=== PATIENT | female | born 1980 | race Caucasian/White ===

== ENCOUNTER 2017-07-04 09:55 | Inpatient (IN) | payer BC, SELFPAY ==
[2017-07-04 10:23] LABS: Bilirubin Small (Negative); Blood, Urine Large (Negative); Glucose, Urine (Dipstick) Negative (Negative); Ketone, Urine 80 mg/dL (Negative); Nitrite Negative (Negative); Protein, Urine (Dipstick) Negative (Neg-Trace)
[2017-07-04 10:28] LABS: Hematocrit 16.7 % (36.0-47.0); Mean Platelet Volume 5.2 fL (7.4-10.4); Red Blood Cell (RBC) Count 1.46 mill/uL (4.20-5.40); White Blood Cell (WBC) Count 11.4 thou/uL (4.8-10.8)
[2017-07-04 10:39] LABS: Lactic Acid - Sepsis 2.3 mmol/L (0.5-2.2); Prothrombin Time 13.6 SEC (12.0-14.7)
[2017-07-04 10:43] LABS: PTT 22.4 SEC (22.9-36.1)
[2017-07-04 10:44] LABS: ALT (SGPT) 38 U/L (8-55); AST (SGOT) 62 U/L (5-34); Alkaline Phosphatase 94 U/L (40-150); Anion Gap 18 mmol/L (10-20); BUN (Urea Nitrogen) 13 mg/dL (7.0-18.7); Bilirubin, Total 7.7 mg/dL (0.2-1.2); CK (CPK) 30 U/L (29-168); Calc. Creatinine Clearance 0 mL/min (70-130); Calcium 8.6 mg/dL (7.8-10.44); Carbon Dioxide 18 mmol/L (22-29); Chloride 104 mmol/L (98-107); Estimated GFR-MDRD 87; Globulin 2.8 g/dL (2.4-3.5); Lipase 18 U/L (8-78); Protein, Total 7.2 g/dL (6.0-8.3); Troponin I Less than 0.010 ng/mL (< 0.028)
[2017-07-04 10:46] LABS: Bacteria/HPF 2+ HPF (None Seen); Hyaline Casts/LPF 0-3 HYALINE CAST LPF (0-3 Hyaline); RBC/HPF 0-3 HPF (0-3)
[2017-07-04 10:56] LABS: #Basophils 0.2 thou/uL (0.0-0.2); #Lymphocytes 1.1 thou/uL (1.20-3.40); #Monocytes 0.6 thou/uL (0.11-0.59); #Neutrophils 9.6 thou/uL (1.40-6.50); %Basophils 1.5 % (0.0-1.0); %Eosinophils 0.1 % (0.0-10.0); %Lymphocytes 9.3 % (21.0-51.0); %Monocytes 5.6 % (0.0-10.0); Anisocytosis MODERATE=16-30 cells (100X) (0-5/hpf); Hypochromia SLIGHT = 6-15 cells (100X) (0-5/hpf); Macrocytosis MODERATE=16-30 cells (100X) (0-5/hpf); Polychromasia MODERATE = 3-4 cells (100X) (0-2/hpf); Spherocytes SLIGHT = 1-5 cells (100X) (None Seen)
[2017-07-04 12:42] VITALS: BMI 31.7
[2017-07-04] MEDS ORDERED: Sodium Chloride 0.9% 1,000 ML IV SCH (13:15)
[2017-07-04] MEDS ORDERED: Mag-Al 1200 mg/1200 mg/30 ML UDCUP PO PRN (15:04)
[2017-07-04] MEDS ORDERED: hydrALAZINE 20 MG/ML VIAL SLOW IVP PRN (15:04)
[2017-07-04] MEDS: Sodium Chloride 0.9% 1,000 ML IV SCH (15:25)
[2017-07-04 16:14] LABS: Reticulocyte Count 24.6 % (0.5-1.5)
--- NOTE | 2017-07-04 17:32 | HP ---
PRIMARY CARE PHYSICIAN: Dr. Fowler. CHIEF COMPLAINT: \\\\"I'm having headaches and feeling generally weak and my color looks different.\\\\ " HISTORY OF PRESENT ILLNESS: Ms. Ruiz is a very pleasant 37-year-old female who has no signific ant past medical history. She says that about 2 weeks ago, she started having migraine type headach es and pain in the right ear. She says that it was coming and going and she felt like it was probab ly sinus related. She saw her primary care physician about it and he evaluated her and she continue d having the symptoms, so he placed her on some medication for migraines. He saw her a few days thao or to admission and she says she only took 2 doses of this medication. During this time, she was fe eling foggy headed and then she says that she had some vaginal bleeding that she thought felt was he r period, but then it went away. She has been feeling groggy and occasionally feels nauseated and h er body aching and for this reason she came back to see her primary care physician today. He notice d that her skin color appeared jaundiced and as a result he requested that she go to the emergency r oom for evaluation. In the ER, she was evaluated and found to have an elevated bilirubin of 7.7 and it was also noted that her hemoglobin was 5.4. She has a normal platelet count as well as normal l iver function tests, but she is being admitted for evaluation and treatment. The patient denies any new medications other than she has been on Contrave, which is a medication for weight loss for the past 4 months and she takes ibuprofen and Tylenol off and on for the recent body aches that she has been having and the medication for migraine. However, she says that the symptoms started prior to h er taking the medications for migraine. The patient otherwise does not notice any other particular symptoms. No sore throat, rhinorrhea, no abdominal pain, no change in bowels, etc. The patient has not had any recent foreign travel or any excessive outdoor exposure that she is aware of. No other dietary supplements, etc. REVIEW OF SYSTEMS: Constitutional: Again, she has had some subjective fever, but no chills, no nig ht sweats, no weight loss. HEENT: She has had the headache as previously mentioned as well as some blurred vision, no sore throat, no rhinorrhea, neck pain, no adenopathy. Pulmonary: No hemoptysis , no cough, no wheezing. Cardiovascular: She denies any chest pain, no shortness of breath, no PND , no orthopnea. Gastrointestinal: No abdominal pain. She has had some nausea, but no vomiting, no change in bowels. Genitourinary: No urinary frequency, hematuria, no hesitancy. Neurologic: No focal weakness, numbness, no seizures. Psychiatric: No symptoms of anxiety or depression. Skin/In tegument: No skin changes, no rash. PAST MEDICAL HISTORY: Negative. PAST SURGICAL HISTORY: She has had a as well as dental surgery and cholecystectomy. ALLERGIES: SULFA, which causes a rash all over her body. SOCIAL HISTORY: She is . She has 2 children, ages 16 and 21. She is a former smoker, she q uit a year ago. She rarely drinks. FAMILY HISTORY: No history of any inheritable diseases. CURRENT MEDICATIONS: Include Astelin nasal spray, Flonase and Contrave. PHYSICAL EXAMINATION: VITAL SIGNS: The blood pressure was 96/64, heart rate 85, respiratory rate of 16, and temperature i s 98.8. HEENT: Her pupils are equal, round, and reactive. Extraocular muscles are intact. Sclerae are mil dly jaundiced. Throat: There is no erythema, no exudates. NECK: No adenopathy, no bruits. LUNGS: Clear. There is no wheezing, no rales. CARDIOVASCULAR: She has a normal S1, S2. There is no S3 or S4. No murmurs, clicks or rubs. ABDOMEN: Soft, nontender, nondistended. Positive for bowel sounds. There is no rebound, no guardi ng. EXTREMITIES: She has got some mild nonpitting edema. NEUROLOGIC: The exam is grossly nonfocal. LABORATORY RESULTS: Sodium is 136, potassium is 3.8, chloride is 104, CO2 is 18, BUN of 13, creatin ine is 0.74, glucose is 165, and bilirubin is 7.7. White blood cell count 11.4, hemoglobin 5.4, hem atocrit is 16.7, platelet count is 401. INR is 1.0. Urinalysis shows large blood and 2+ bacteria, small leukocyte esterase. ASSESSMENT AND PLAN: This is a pleasant 37-year-old female who presents with generalized weakness, fatigue, headache and was found to have severe anemia with hemoglobin of 5.4. Her MCV was elevated at 114 and a normal platelet count. She also has an elevated bilirubin and this is likely as a resu lt of hemolysis. She will be admitted to the medical floor. Hematology has already been consulted. We will hold off on transfusing until she can be evaluated by Hematology. Hematology team has camilo boogie ordered some pulmonary lab work to identify the cause of the hemolysis. We will also need to c heck the medication Contrave to see if this is a potential culprit as well and would likely need to rule out infectious causes as well. We will hold off on any deep venous thrombosis prophylaxis othe r than mechanical prophylaxis until cleared by Hematology.
[2017-07-04] MEDS: methylPREDNISolone Sod Succ/PF 125 MG/2 ML VIAL IVP SCH (17:35)
[2017-07-04] MEDS: Acetaminophen 325 MG TAB PO PRN (19:01)
--- NOTE | 2017-07-04 19:03 | CON ---
DATE OF CONSULTATION: 07/04/2017 REASON FOR CONSULTATION: Severe anemia. HISTORY OF PRESENT ILLNESS: Ms. Ruiz is a pleasant 37-year-old female who presented to her primary care this morning with complaints of headaches, dizziness and fatigue. She was noted to be extremely jaundiced and referred to the emergency room. CBC showed a hemoglobin of 5.4. Her total bilirubin was 7.7. She had a positive stool guaiac. The patient was admitted for further evaluation. The patient states she has been in her usual state of health until approximately 2 weeks ago when she began to have headaches. Over the weekend, she had dizziness especially when standing from a sitting position. She was having difficulty thinking. She denies any shortness of breath or chest pain. She was due to start her menses on Sunday and had a very brief episode of clotting, but no bleeding since. She denies any history of anemia. She is allergic to SULFA and has not taken any recently. No recent illness. She started a medication called Contrave approximately 4 months ago and this is the only medication that she takes. She does admit to taking Motrin and Tylenol every 6 hours over the last few days for her headache. We were contacted when the patient was in the emergency room as was concerns for hemolysis given her elevated bilirubin. She was typed and crossed but we requested that she not be transfused. PAST MEDICAL HISTORY: Anxiety and depression. PAST SURGICAL HISTORY: 1. Cholecystectomy. 2. x2. ALLERGIES: SULFA. HOME MEDICATIONS: 1. Contrave 2 tablets p.o. b.i.d. 2. Flonase p.r.n. FAMILY HISTORY: No history of hemolytic anemia or blood disorder. SOCIAL HISTORY: , has 2 children, lives with her spouse. No alcohol, tobacco or illicit drug use. REVIEW OF SYSTEMS: Constitutional: No fever, chills, night sweats, recent weight loss or gain. Eyes: No blurred or double vision. ENT: No pain, hoarseness, sore throat, or dysphagia. Cardiovascular: No chest pain, palpitations or syncope. Respiratory: No shortness of breath, dyspnea on exertion or orthopnea. Gastrointestinal: No nausea, vomiting, diarrhea, constipation or abdominal pain. Genitourinary: No dysuria or hematuria. Musculoskeletal: No joint or back pain. Skin: No rash or pruritus. Hematologic: No bleeding, bruising or clotting. Neurologic: Positive for weakness and headache. No numbness, tingling or seizure activity. Psychiatric : No anxiety or depression. PHYSICAL EXAMINATION: VITAL SIGNS: Temperature is 98.8, pulse is 85, respiratory rate is 16, blood pressure is 96/62. She is 100% on room air. GENERAL: Well-developed, well-nourished female, in no acute distress. HEENT: Normocephalic, atraumatic. Pupils are equal and reactive to light. Sclerae are icteric. NECK: Supple. CARDIOVASCULAR: Regular rate and rhythm. LUNGS: Clear to auscultation. ABDOMEN: Soft, nontender, bowel sounds are positive. EXTREMITIES: No clubbing, cyanosis or edema. SKIN: She is jaundiced. NEUROLOGICAL: Nonfocal. PSYCHIATRIC: The patient is alert and oriented and appropriate. PERTINENT LABORATORY AND X-RAYS: Current WBCs are 11.4, hemoglobin 5.4, hematocrit 16.7, MCV is 114, platelet count is 401. She got 84% neutrophils, 10 % lymphocytes. Sed rate is 101. Retic count is 24.6. PT is 13.6, INR is 1.0, PTT is 22.4. Sodium is 136, potassium 3.8, chloride 104, CO2 is 18, BUN is 13, creatinine 0.674. Lactic acid is 1.1, calcium 8.6, total bilirubin is 7.7, AST is 62, ALT is 38, alkaline phosphatase is 94. Troponin is negative. C- reactive protein is 1.34. Serum total protein 7.2, albumin 4.2, globulin 2.8. Ester test is positive. ASSESSMENT AND PLAN: Hemolytic anemia, autoimmune versus possible drug induced secondary to Contrave. I recommend that she stop this medication. We will begin high dose steroids, Solu-Medrol twice daily and hold transfusion at this time that she is essentially asymptomatic other than jaundice. We will recheck her CBC in the morning and follow her hospital course closely. Thank you for the consult. The case was discussed with Dr. Edward Lilly. ALLA
[2017-07-05] MEDS: traMADol HCl 50 MG TAB PO PRN (00:32)
[2017-07-05] MEDS: Sodium Chloride 0.9% 1,000 ML IV SCH ×2 (01:55→17:34)
[2017-07-05] MEDS: Acetaminophen 325 MG TAB PO PRN ×2 (02:57→14:46)
[2017-07-05] MEDS: methylPREDNISolone Sod Succ/PF 125 MG/2 ML VIAL IVP SCH ×2 (06:24→17:34)
[2017-07-05 06:39] LABS: Hematocrit 12.4 % (36.0-47.0); Mean Platelet Volume 6.5 fL (7.4-10.4); Red Blood Cell (RBC) Count 1.11 mill/uL (4.20-5.40); White Blood Cell (WBC) Count 9.8 thou/uL (4.8-10.8)
[2017-07-05 06:40] LABS: #Eosinphils 0.1 thou/uL (0.0-0.7); #Lymphocytes 1.1 thou/uL (1.20-3.40); #Monocytes 0.5 thou/uL (0.11-0.59); #Neutrophils 8.2 thou/uL (1.40-6.50); %Eosinophils 0.9 % (0.0-10.0); %Monocytes 4.7 % (0.0-10.0)
[2017-07-05 06:41] LABS: Anion Gap 11 mmol/L (10-20); BUN (Urea Nitrogen) 9 mg/dL (7.0-18.7); Calc. Creatinine Clearance 159 mL/min (70-130); Carbon Dioxide 22 mmol/L (22-29); Chloride 107 mmol/L (98-107); Estimated GFR-MDRD Greater than 90
--- NOTE | 2017-07-05 07:06 | PDOC.PN ---
- Subjective Encounter Start Date: 07/05/17 Encounter Start Time: 07:03 Ms. Ruiz says she continues to have a headache, but actually feels a little better today. She denies chest pain or shortness of breath. - Objective Resuscitation Status: Resuscitation Status FULL:Full Resuscitation MAR Reviewed: Yes Vital Signs & Weight: Vital Signs (12 hours) Temp Pulse Resp BP Pulse Ox 07/05/17 04:00 98.6 F 92 16 97/62 100 07/05/17 00:00 98.8 F 91 16 98/60 100 07/04/17 20:00 100.6 F H 99 16 115/73 98 I&O: 07/04/17 07/05/17 07/06/17 06:59 06:59 06:59 Intake Total 1100 Output Total 300 Balance 800 Result Diagrams: 07/05/17 04:18 07/05/17 04:18 Phys Exam - Physical Examination HEENT: PERRLA Respiratory: no wheezing, no rales, no rhonchi, clear to auscultation bilateral Cardiovascular: RRR + 2/6 systolic murmur Gastrointestinal: soft, non-tender, positive bowel sounds Musculoskeletal: no edema Dx/Plan (1) Acute hemolytic anemia Code(s): D59.9 - ACQUIRED HEMOLYTIC ANEMIA, UNSPECIFIED Status: Acute (2) Obesity (BMI 30.0-34.9) Code(s): E66.9 - OBESITY, UNSPECIFIED Status: Acute - Plan * Acute Hemolytic Anemia- patient H&H has dropped * Besides headache she is relatively asymptomatic- however will transfer to IMCU for closer monitoring until her hemoglobin begins to trend up * Await further recommendations from Hematology.
[2017-07-05 07:31] LABS: Anisocytosis MODERATE=16-30 cells (100X) (0-5/hpf); Hypochromia SLIGHT = 6-15 cells (100X) (0-5/hpf); Polychromasia MARKED = >4 cells (100X) (0-2/hpf)
[2017-07-05 18:17] LABS: Hematocrit 15.2 % (36.0-47.0); Mean Platelet Volume 6.4 fL (7.4-10.4); Red Blood Cell (RBC) Count 1.38 mill/uL (4.20-5.40)
[2017-07-05 18:51] LABS: Anisocytosis SLIGHT = 6-15 cells (100X) (0-5/hpf); Band 2 % (5-11); Metamyelocyte 2 % (0-0); Neutrophil 79 % (42-75); Polychromasia MODERATE = 3-4 cells (100X) (0-2/hpf)
[2017-07-06] MEDS: Sodium Chloride 0.9% 1,000 ML IV SCH ×2 (01:07→15:00)
[2017-07-06] MEDS: traMADol HCl 50 MG TAB PO PRN ×3 (01:07→19:42)
[2017-07-06] MEDS: Acetaminophen 325 MG TAB PO PRN ×3 (01:07→19:42)
[2017-07-06 04:40] LABS: ALT (SGPT) 25 U/L (8-55); AST (SGOT) 20 U/L (5-34); Alkaline Phosphatase 70 U/L (40-150); Anion Gap 13 mmol/L (10-20); BUN (Urea Nitrogen) 10 mg/dL (7.0-18.7); Bilirubin, Total 5.3 mg/dL (0.2-1.2); Calc. Creatinine Clearance 154 mL/min (70-130); Carbon Dioxide 23 mmol/L (22-29); Chloride 109 mmol/L (98-107); Estimated GFR-MDRD Greater than 90; Globulin 2.2 g/dL (2.4-3.5); Protein, Total 5.9 g/dL (6.0-8.3)
[2017-07-06 04:48] LABS: Hematocrit 14.1 % (36.0-47.0)
[2017-07-06 05:30] LABS: Anisocytosis SLIGHT = 6-15 cells (100X) (0-5/hpf); Band 3 % (5-11); Macrocytosis SLIGHT = 6-15 cells (100X) (0-5/hpf); Mean Platelet Volume 6.5 fL (7.4-10.4); Metamyelocyte 1 % (0-0); Neutrophil 86 % (42-75); Nucleated RBC 2 % (0); Polychromasia MARKED = >4 cells (100X) (0-2/hpf); Red Blood Cell (RBC) Count 1.23 mill/uL (4.20-5.40); Spherocytes SLIGHT = 1-5 cells (100X) (None Seen); White Blood Cell (WBC) Count 17.9 thou/uL (4.8-10.8)
[2017-07-06] MEDS: methylPREDNISolone Sod Succ/PF 125 MG/2 ML VIAL IVP SCH ×2 (05:31→18:21)
--- NOTE | 2017-07-06 08:06 | PDOC.PN ---
- Subjective Encounter Start Date: 07/06/17 Encounter Start Time: 08:04 Ms. Ruiz says she feels about the same. She continues to have the headache , but no other complaints. - Objective Resuscitation Status: Resuscitation Status FULL:Full Resuscitation MAR Reviewed: Yes Vital Signs & Weight: Vital Signs (12 hours) Temp Pulse Resp BP Pulse Ox 07/06/17 04:00 98.7 F 70 16 93/62 100 07/06/17 00:00 98.7 F 91 16 105/58 L 98 07/05/17 22:00 80 16 92/56 L 98 Weight Admit Weight 185 lb Weight 203 lb I&O: 07/05/17 07/06/17 07/07/17 06:59 06:59 06:59 Intake Total 1100 4250 Output Total 300 Balance 800 4250 Result Diagrams: 07/06/17 04:09 07/06/17 04:09 Phys Exam - Physical Examination HEENT: PERRLA Respiratory: no wheezing, no rales, no rhonchi, clear to auscultation bilateral Cardiovascular: RRR, no significant murmur Gastrointestinal: soft, non-tender, positive bowel sounds Musculoskeletal: no edema Dx/Plan (1) Acute hemolytic anemia Code(s): D59.9 - ACQUIRED HEMOLYTIC ANEMIA, UNSPECIFIED Status: Acute (2) Obesity (BMI 30.0-34.9) Code(s): E66.9 - OBESITY, UNSPECIFIED Status: Acute - Plan * Hemolytic Anemia- suspect Auto-immune, vs. Drug induced * Continue IV steroids * Continue to monitor H&H * Despite her low H&H she appears stable, and her H&H has not dropped below 4. She may be able to move to Oncology of Medical floor.
[2017-07-07] MEDS: Sodium Chloride 0.9% 1,000 ML IV SCH (01:03)
[2017-07-07 05:40] LABS: Anisocytosis MODERATE=16-30 cells (100X) (0-5/hpf); Band 5 % (5-11); Hematocrit 19.1 % (36.0-47.0); Macrocytosis SLIGHT = 6-15 cells (100X) (0-5/hpf); Mean Platelet Volume 6.5 fL (7.4-10.4); Metamyelocyte 2 % (0-0); Neutrophil 84 % (42-75); Polychromasia MODERATE = 3-4 cells (100X) (0-2/hpf); Red Blood Cell (RBC) Count 1.69 mill/uL (4.20-5.40); White Blood Cell (WBC) Count 21.8 thou/uL (4.8-10.8)
[2017-07-07] MEDS: Acetaminophen 325 MG TAB PO PRN ×2 (06:26→18:35)
[2017-07-07] MEDS: traMADol HCl 50 MG TAB PO PRN ×2 (06:27→18:36)
[2017-07-07] MEDS: methylPREDNISolone Sod Succ/PF 125 MG/2 ML VIAL IVP SCH ×2 (06:28→18:26)
--- NOTE | 2017-07-07 07:32 | PDOC.PN ---
- Subjective Encounter Start Date: 07/07/17 Encounter Start Time: 07:30 Ms. Ruiz is feeling a little better this morning. - Objective Resuscitation Status: Resuscitation Status FULL:Full Resuscitation MAR Reviewed: Yes Vital Signs & Weight: Vital Signs (12 hours) Temp Pulse Resp BP Pulse Ox 07/07/17 04:00 98.4 F 72 16 100/64 96 07/06/17 19:35 98.9 F 88 16 93/56 L 100 Weight Admit Weight 185 lb Weight 204 lb 8 oz I&O: 07/06/17 07/07/17 07/08/17 06:59 06:59 06:59 Intake Total 4250 4990 Output Total 1275 Balance 4250 3715 Result Diagrams: 07/07/17 04:42 07/06/17 04:09 Phys Exam - Physical Examination HEENT: PERRLA Respiratory: no wheezing, no rales, no rhonchi, clear to auscultation bilateral Cardiovascular: RRR, no significant murmur Gastrointestinal: soft, non-tender, positive bowel sounds Musculoskeletal: no edema Dx/Plan (1) Acute hemolytic anemia Code(s): D59.9 - ACQUIRED HEMOLYTIC ANEMIA, UNSPECIFIED Status: Acute (2) Obesity (BMI 30.0-34.9) Code(s): E66.9 - OBESITY, UNSPECIFIED Status: Acute - Plan * Acute anemia- due to hemolysis- she received another unit of blood yesterday * Her H&H is holding at 6.2 * She is afebrile today * Stable for move out the [facility].
[2017-07-07] MEDS ORDERED: Sterile Water 10 ML ONE (18:24)
[2017-07-07] MEDS ORDERED: Sodium Chloride 0.9% 10 ML ONE (18:34)
[2017-07-08 04:09] LABS: #Eosinphils 0.1 thou/uL (0.0-0.7); #Lymphocytes 1.2 thou/uL (1.20-3.40); #Monocytes 0.8 thou/uL (0.11-0.59); %Eosinophils 0.3 % (0.0-10.0); %Lymphocytes 7.1 % (21.0-51.0); %Monocytes 4.9 % (0.0-10.0); Anisocytosis MODERATE=16-30 cells (100X) (0-5/hpf); Hematocrit 19.5 % (36.0-47.0); Macrocytosis SLIGHT = 6-15 cells (100X) (0-5/hpf); Mean Platelet Volume 6.8 fL (7.4-10.4); Polychromasia MARKED = >4 cells (100X) (0-2/hpf); Spherocytes SLIGHT = 1-5 cells (100X) (None Seen); White Blood Cell (WBC) Count 17.1 thou/uL (4.8-10.8)
[2017-07-08] MEDS: methylPREDNISolone Sod Succ/PF 125 MG/2 ML VIAL IVP SCH ×2 (07:18→18:08)
--- NOTE | 2017-07-08 14:19 | PDOC.PN ---
- Subjective Encounter Start Date: 07/08/17 Encounter Start Time: 14:13 Ms. Ruiz is feeling better. She has not had a headache in over 24 hours now. - Objective Resuscitation Status: Resuscitation Status FULL:Full Resuscitation MAR Reviewed: Yes Vital Signs & Weight: Vital Signs (12 hours) Temp Pulse Resp BP Pulse Ox 07/08/17 08:00 98.5 F 75 16 07/08/17 07:25 98.5 F 75 16 101/65 100 Weight Admit Weight 185 lb Weight 204 lb 8 oz I&O: 07/07/17 07/08/17 07/09/17 06:59 06:59 06:59 Intake Total 4990 240 Output Total 1275 Balance 3715 240 Result Diagrams: 07/08/17 03:33 07/06/17 04:09 Phys Exam - Physical Examination HEENT: PERRLA Respiratory: no wheezing, no rales, no rhonchi, clear to auscultation bilateral Cardiovascular: RRR, no significant murmur, no rub Gastrointestinal: soft, non-tender, positive bowel sounds Musculoskeletal: no edema Dx/Plan (1) Acute hemolytic anemia Code(s): D59.9 - ACQUIRED HEMOLYTIC ANEMIA, UNSPECIFIED Status: Acute (2) Obesity (BMI 30.0-34.9) Code(s): E66.9 - OBESITY, UNSPECIFIED Status: Acute - Plan * Acute hemolytic anemia- her hemoglobin has been holding in the mid 6's * Symptomatically she is improved, with headache resolved, and she was up to ambulate today. * Hopefully home tomorrow
[2017-07-09 05:55] LABS: Mean Platelet Volume 6.9 fL (7.4-10.4); Metamyelocyte 1 % (0-0); Microcytosis SLIGHT = 6-15 cells (100X) (0-5/hpf); Neutrophil 88 % (42-75); Nucleated RBC 1 % (0); Ovalocytes SLIGHT = 2-5 cells (100X) (0-1/hpf); Polychromasia MODERATE = 3-4 cells (100X) (0-2/hpf); Red Blood Cell (RBC) Count 1.82 mill/uL (4.20-5.40); White Blood Cell (WBC) Count 14.1 thou/uL (4.8-10.8)
[2017-07-09] MEDS: methylPREDNISolone Sod Succ/PF 125 MG/2 ML VIAL IVP SCH (06:43)
--- NOTE | 2017-07-09 07:19 | PDOC.PN ---
- Subjective Encounter Start Date: 07/09/17 Encounter Start Time: 07:17 - Objective Resuscitation Status: Resuscitation Status FULL:Full Resuscitation MAR Reviewed: Yes Vital Signs & Weight: Vital Signs (12 hours) Temp Pulse Resp Pulse Ox 07/08/17 19:53 98.9 F 76 16 98 Weight Admit Weight 185 lb Weight 204 lb 8 oz I&O: 07/08/17 07/09/17 07/10/17 06:59 06:59 06:59 Intake Total 240 960 Balance 240 960 Result Diagrams: 07/09/17 05:23 07/06/17 04:09 Phys Exam - Physical Examination HEENT: PERRLA Respiratory: no wheezing, no rales, no rhonchi, clear to auscultation bilateral Cardiovascular: RRR, no significant murmur Gastrointestinal: soft, positive bowel sounds Musculoskeletal: no edema Dx/Plan (1) Acute hemolytic anemia Code(s): D59.9 - ACQUIRED HEMOLYTIC ANEMIA, UNSPECIFIED Status: Acute (2) Obesity (BMI 30.0-34.9) Code(s): E66.9 - OBESITY, UNSPECIFIED Status: Acute - Plan * Hemolytic Anemia- likely from medication ( drug related) * Her H&H is stable, slightly higher * Discharge home if OK with Hematology.
[2017-07-09 12:07] VITALS: BP 115/62; TEMP 99.6
--- NOTE | 2017-07-09 12:49 | DIS ---
DATE OF ADMISSION: 07/04/2017 DATE OF DISCHARGE: 07/09/2017 PRIMARY CARE PHYSICIAN: Dr. Fowler. DISCHARGE DISPOSITION: Home. PRIMARY DISCHARGE DIAGNOSES: 1. Acute hemolytic anemia, likely secondary to medication. 2. Obesity. 3. Allergic rhinitis. DISCHARGE MEDICATIONS: Include prednisone taper, Flonase nasal spray as well as Astelin nasal spray . CODE STATUS: FULL CODE. ALLERGIES: SULFA as well as CONTRAVE. HOSPITAL COURSE: Ms. Ruiz is a pleasant 37-year-old female that presented to her primary care physician due to feeling tired and weak and having a headache. She appeared jaundiced and he recomm ended that she go to the [facility]gent [facility] for evaluation. There, it was found that her bilirubin was 7.7 and her hemoglobin was 4.2. For this reason, she was transferred to our facility and found to have an acute hemolytic anemia thought to be secondary to a new medication that she had been star frank on in the past few months, it is a medication to help with weight loss called Contrave and she w as taken off of this medication and placed on high dose steroids. Her hemoglobin got as low as 4.2, but began to recover after transfusion as well as IV steroids and stabilized at about 6.5. She was symptomatically much improved at the time of discharge, headache had resolved as well as some of generalized weakness and she is being discharged home on a steroid taper. She is to follow up [facility] in approximately 3 days on and also with her primary care physician in [address] [place] [address] and as such, she is also being taken off of the medication Contrave and she has been instructed t o do so.
--- NOTE | 2017-07-21 16:29 | EKG ---
Test Reason : Blood Pressure : / mmHG Vent. Rate : 082 BPM Atrial Rate : 082 BPM P-R Int : 144 ms QRS Dur : 086 ms QT Int : 392 ms P-R-T Axes : 049 051 049 degrees QTc Int : 457 ms Poor data quality, interpretation may be adversely affected Normal sinus rhythm Normal ECG Confirmed by JOSE ZAZUETA, CELIA ([id number]), news video editor FARRAH HADLEY ([id number]) on 07/21/2017 4:28:48 PM Referred By: Confirmed By:CELIA GARCIA MD
== END 2017-07-09 12:17 | disposition home or self-care (01) | DRG 810 ==
LOC: SCSER 09:55 → T4-A 11:11 → IMCU/EMU 07-05 08:09 → ONC 07-07 11:12
PROVIDERS: ADMIT Internal Medicine; ATTEND Internal Medicine
PROC: 30233N1 Transfusion of Nonautologous Red Blood Cells into Peripheral Vein, Percutaneous Approach (ICD-10-PCS; principal; 2017-07-05)
PROC: 30233N1 Transfusion of Nonautologous Red Blood Cells into Peripheral Vein, Percutaneous Approach (ICD-10-PCS; 2017-07-06)
DX: D59.2 Drug-induced nonautoimmune hemolytic anemia (principal); E66.9 Obesity, unspecified; T50.995A Adverse effect of other drugs, medicaments and biological substances, initial encounter; Z68.30 Body mass index [BMI] 30.0-30.9, adult; R51 Headache; J30.9 Allergic rhinitis, unspecified; F41.9 Anxiety disorder, unspecified; Z87.891 Personal history of nicotine dependence
CPT/HCPCS: 36415; 36416; 36430; 80048; 80053; 81003; 81015; 82150; 82248; 82274; 82553; 83010; 83605; 83615; 83690; 84484; 85025; 85046; 85610; 85652; 85730; 86038; 86140; 86850; 86880; 86900; 86901; 86922; 87040; 87086; 93005; 94760; 96360; A4216; J2930; J7050; P9016

== ENCOUNTER 2017-09-18 10:44 | Inpatient (IN) | payer BC ==
[2017-09-18 11:16] VITALS: BMI 33.5
[2017-09-18] MEDS ORDERED: Sodium Chloride 0.9% 10 ML ONE (11:41)
[2017-09-18] MEDS ORDERED: OCTAGAM IVPB SCH (12:30)
[2017-09-18] MEDS ORDERED: methylPREDNISolone Sod Succ/PF 125 MG/2 ML VIAL IVP SCH (12:30)
[2017-09-18] MEDS ORDERED: Acetaminophen 500 MG TAB PO PRN (13:32)
[2017-09-18] MEDS ORDERED: diphenhydrAMINE 25 MG CAP PO SCH (13:45)
[2017-09-18] MEDS ORDERED: Ondansetron HCl/PF 4 MG/2 ML Vial IVP PRN (14:58)
[2017-09-18] MEDS ORDERED: Zolpidem Tartrate 5 MG TAB PO PRN (14:58)
--- NOTE | 2017-09-18 15:37 | HP ---
PRIMARY CARE PROVIDER: Dr. Lilly and Dr. Christen Fowler. Direct admit from Dr. Lilly' office CHIEF COMPLAINT: Symptomatic anemia. HISTORY OF PRESENT ILLNESS: Patient with a history of hemolytic anemia diagnosed 06/26/2017, present s weak, short of breath, dyspnea on exertion, dizziness arising, some elevated temperature to 100 wit h chills and sweats. She was seen 5 days ago and started on oral prednisone 40 mg a day. She was se en yesterday, found to have a hemoglobin less than 6. She was called a direct admit to the hospital today for transfusion, IV steroids, etc. PAST SURGICAL HISTORY: and cholecystectomy. ALLERGIES: SULFA. MEDICATIONS: Prednisone 20 mg twice a day for the last 5 days. She takes Afrin and a Flonase nasal spray. SOCIAL HISTORY: . FULL CODE status. Two children. Quit smoking greater than a year ago. R anahi drinks alcohol. FAMILY HISTORY: Negative for inherited diseases. REVIEW OF SYSTEMS: Constitutional: Fever to 100, chills, sweats, dizziness. Eyes: No double visio n, blurred vision, flashing lights. Ears, Nose, and Throat: No ear pain or drainage. No nasal blee ding. No trouble swallowing. Cardiac: No chest pain, orthopnea, or paroxysmal nocturnal dyspnea. Respirations: No cough, wheezing, or asthma. Gastrointestinal: Mild nausea, no emesis, no abdomina l pain or diarrhea. Genitourinary: No hematuria, dysuria. Musculoskeletal: No pain or swelling in arms or legs. Neurologic: No strokes, seizures, or focal weakness. Psychiatric: No anxiety or de pression. Skin: No bruises, bleeding, or rash. Heme/Lymph: No tender or swollen lymph nodes in ax illa, inguinal, or cervical area. PHYSICAL EXAMINATION: GENERAL: She is an alert, pleasant, cooperative lady. VITAL SIGNS: Blood pressure 116/56, temperature 98.9, pulse 97, respirations 20, O2 sat 100 on room air. HEENT: Examination of her head, eyes, ears, nose, and throat reveal pupils equal, round, and reactiv e to light. Extraocular movements are intact. Mucous membranes are pale. Sclerae white. Tympanic membranes clear. Nose is clear. Oral mucous membranes are wet. NECK: No jugular venous distention, adenopathy, or thyromegaly. CHEST: Clear to auscultation and percussion. HEART: Regular rate and rhythm. First and second heart sounds are clear. There are no appreciated murmurs or gallops. ABDOMEN: Soft, bowel sounds are normal. No hepatosplenomegaly, masses, rebound, or bruits. EXTREMITIES: No cyanosis, clubbing, or edema. SKIN: Warm and dry without bruises or rash. LYMPHATIC: No tender or swollen lymph nodes in axilla, inguinal, or cervical area. No petechial hem orrhages or ecchymoses. PULSES: Carotid, radial, femoral, and dorsalis pedis pulses intact, brisk, and symmetric. NEUROLOGICAL: Cranial nerves II-XII are intact. Moves all extremities. Deep tendon reflexes symmet mack. Sensation is intact. LABORATORY DATA: Labs, none available. EKGs, none available. Chest x-ray, none available. The patient is currently on methylprednisolone 60 mg IV b.i.d., Octagam 10% 80 grams in 1 bag IV now. Antibody panel has been ordered. Type and cross matched for 2 units to be transfused when available. A comprehensive metabolic profile and a CBC will be obtained tomorrow morning. DIAGNOSES: Symptomatic anemia, hemolytic anemia, dizziness, and fever.
[2017-09-18] MEDS: methylPREDNISolone Sod Succ/PF 125 MG/2 ML VIAL IVP SCH (21:02)
[2017-09-18] MEDS: Acetaminophen 325 MG TAB PO PRN (21:02)
--- NOTE | 2017-09-18 23:09 | CON ---
DATE OF CONSULTATION: 09/18/2017 REASON FOR ADMISSION: Relapsed autoimmune hemolytic anemia. HISTORY OF PRESENT ILLNESS: The patient is a 37-year-old woman originally diagnosed with autoimmune hemolytic anemia in 06/2017. She presented with a hemoglobin of 4 with typical findings consistent w ith autoimmune hemolysis. She was placed on high dose steroids and transition to outpatient status. She responded nicely to steroids with a peak hemoglobin of 13.6 in early August. Steroids were ta pered and discontinued in late August. She presented to the office on 09/14 with fatigue and jaund ice and the hemoglobin had decreased to 8.8, again with evidence of autoimmune hemolysis. Steroids w ere resumed and she returned to the office on the day of admission with marked fatigue and was margin ally ambulatory. CBC showed a white blood cell count of 17.7, hemoglobin 5.6, hematocrit 15.8, MCV 1 00.1, and platelet count 442,000. Physical examination was consistent with a marked anemia and decre ase functional status associated with scleral icterus. She is admitted at this time for relapsed aut oimmune hemolysis and for further therapy. ALLERGIES: She describes sensitivity to SULFA. MEDICATION: Flonase and Zyrtec as needed. MEDICAL ILLNESS: The patient has history of anxiety and depression. There is no history of hyperten emilia, diabetes mellitus, or coronary artery disease. PAST SURGICAL HISTORY: She has undergone section twice in the past and a cholecystectomy in 2003. FAMILY HISTORY: There is no history of blood disorder in the family. PERSONAL HISTORY: The patient is and has 2 children. She lives with her spouse. She is a f ormer smoker. She does not drink alcohol excessively. She is an corporate staff accountant and works locally. She has had no occupational exposure. PHYSICAL EXAMINATION: VITAL SIGNS: Temperature 99.6, pulse 114 and regular, blood pressure 132/74 and she is afebrile. GENERAL: The patient is a well-developed, well-nourished woman in mild distress, complaining of ofelia ed fatigue. She is clearly jaundiced. HEENT: The extraocular movements are intact and the pupils are equal, round, and reactive to light. NECK: Supple. LUNGS: Clear. CARDIOVASCULAR: Regular rate and rhythm without murmur, rub, gallop, or click. There is a resting s inus tachycardia. ABDOMEN: No tenderness, organomegaly, masses, bruits, or ascites. EXTREMITIES: No clubbing, cyanosis, or edema. SKIN: Normal. LYMPH: No adenopathy. MUSCULOSKELETAL: No active arthritis. NEUROLOGIC: No focal findings. Cranial nerves II-XII are grossly intact. LABORATORY DATA: See history of present illness. IMPRESSION: Relapsed autoimmune hemolytic anemia. RECOMMENDATIONS: The patient will be admitted for resumption of high dose steroids. Intravenous imm unoglobulin will be administered. She will be typed and crossed 4 units of packed red blood cells an d transfusion. We will proceed cautiously. When stable, we planned to begin Rituxan and will likely give the first dose of 4 consecutive weekly doses in the hospital. Thanks very much for allowing me to provide my recommendations.
[2017-09-19 06:50] LABS: ALT (SGPT) 10 U/L (8-55); AST (SGOT) 11 U/L (5-34); Albumin 3.8 g/dL (3.5-5.0); Alkaline Phosphatase 74 U/L (40-150); Anion Gap 14 mmol/L (10-20); BUN (Urea Nitrogen) 11 mg/dL (7.0-18.7); Bilirubin, Total 4.8 mg/dL (0.2-1.2); Calc. Creatinine Clearance 146 mL/min (70-130); Calcium 9.1 mg/dL (7.8-10.44); Carbon Dioxide 23 mmol/L (22-29); Chloride 105 mmol/L (98-107); Estimated GFR-MDRD 90; Globulin 4.2 g/dL (2.4-3.5); Glucose 129 mg/dL (70-105); Potassium 3.5 mmol/L (3.5-5.1); Sodium 138 mmol/L (136-145)
[2017-09-19 06:55] LABS: #Eosinphils 0.2 thou/uL (0.0-0.7); #Monocytes 1.3 thou/uL (0.11-0.59); #Neutrophils 16.2 thou/uL (1.40-6.50); %Basophils 0.1 % (0.0-1.0); %Eosinophils 0.9 % (0.0-10.0); %Lymphocytes 10.3 % (21.0-51.0); %Monocytes 6.6 % (0.0-10.0); %Neutrophils 82.1 % (42.0-75.0); Anisocytosis MODERATE=16-30 cells (100X) (0-5/hpf); Band 8 % (5-11); Hemoglobin 7.1 g/dL (12.0-16.0); Lymphocytes 7 % (21-51); MDiff Complete? YES; Mean Corpuscular HGB CONC 33.7 g/dL (32.0-36.0); Mean Corpuscular Hemoglobin 33.9 pg (27.0-31.0); Mean Platelet Volume 6.6 fL (7.4-10.4); Metamyelocyte 1 % (0-0); Monocytes 2 % (0-10); Neutrophil 82 % (42-75); Nucleated RBC 1 % (0); Platelet Count 350 thou/uL (130-400); Polychromasia MODERATE = 3-4 cells (100X) (0-2/hpf); RBC Distribution Width 21.9 % (11.5-14.5); Spherocytes SLIGHT = 1-5 cells (100X) (None Seen); White Blood Cell (WBC) Count 19.7 thou/uL (4.8-10.8)
[2017-09-19] MEDS: methylPREDNISolone Sod Succ/PF 125 MG/2 ML VIAL IVP SCH ×2 (09:04→21:09)
[2017-09-19] MEDS: Acetaminophen 325 MG TAB PO PRN ×2 (09:07→13:15)
--- NOTE | 2017-09-19 09:54 | PDOC.PN ---
- Subjective Encounter Start Date: 09/19/17 Encounter Start Time: 09:51 Subjective: small, dime sized eccymosis on BLE - Objective Resuscitation Status: Resuscitation Status FULL:Full Resuscitation MAR Reviewed: Yes Vital Signs & Weight: Vital Signs (12 hours) Temp Pulse Pulse Resp BP BP Pulse Ox 09/19/17 08:04 99.5 F 70 20 09/19/17 07:29 99.5 F 70 20 102/60 98 09/19/17 03:51 98.1 F 94 20 110/67 98 09/19/17 00:50 97.9 F 91 16 111/73 Weight Weight 195 lb I&O: 09/18/17 09/19/17 09/20/17 06:59 06:59 06:59 Intake Total 2820 Balance 2820 Result Diagrams: 09/19/17 05:46 09/19/17 05:46 Phys Exam - Physical Examination Constitutional: NAD Neck: no JVD Respiratory: clear to auscultation bilateral Cardiovascular: RRR, no significant murmur Gastrointestinal: soft, positive bowel sounds Musculoskeletal: no edema Deviation from normal: small eccymosis BLE Dx/Plan (1) Dizziness Code(s): R42 - DIZZINESS AND GIDDINESS Status: Acute (2) Ecchymosis Code(s): R58 - HEMORRHAGE, NOT ELSEWHERE CLASSIFIED Status: Acute (3) Acute hemolytic anemia Code(s): D59.9 - ACQUIRED HEMOLYTIC ANEMIA, UNSPECIFIED Status: Acute - Plan cont steroids, serial cbc -: tranfuse prn -: PT/INR, PTT * .
[2017-09-19 10:50] LABS: PTT 23.9 SEC (22.9-36.1); Prothrombin Time 13.6 SEC (12.0-14.7)
[2017-09-19] MEDS ORDERED: Sodium Chloride 0.9% 10 ML ONE (21:01)
[2017-09-19] MEDS: diphenhydrAMINE 25 MG CAP PO PRN (21:03)
[2017-09-20] MEDS: methylPREDNISolone Sod Succ/PF 125 MG/2 ML VIAL IVP SCH ×2 (08:05→20:26)
[2017-09-20 08:55] LABS: Hemoglobin 8.1 g/dL (12.0-16.0); Mean Corpuscular HGB CONC 32.5 g/dL (32.0-36.0); Mean Corpuscular Hemoglobin 34.2 pg (27.0-31.0); Mean Platelet Volume 6.6 fL (7.4-10.4); Platelet Count 364 thou/uL (130-400); RBC Distribution Width 24.9 % (11.5-14.5); Red Blood Cell (RBC) Count 2.37 mill/uL (4.20-5.40); White Blood Cell (WBC) Count 21.1 thou/uL (4.8-10.8)
[2017-09-20 09:11] LABS: ALT (SGPT) 9 U/L (8-55); AST (SGOT) 11 U/L (5-34); Alkaline Phosphatase 73 U/L (40-150); Anion Gap 15 mmol/L (10-20); BUN (Urea Nitrogen) 14 mg/dL (7.0-18.7); Bilirubin, Total 3.3 mg/dL (0.2-1.2); Calc. Creatinine Clearance 135 mL/min (70-130); Calcium 9.2 mg/dL (7.8-10.44); Carbon Dioxide 25 mmol/L (22-29); Chloride 106 mmol/L (98-107); Estimated GFR-MDRD 79; Globulin 3.9 g/dL (2.4-3.5); Glucose 122 mg/dL (70-105); Potassium 3.6 mmol/L (3.5-5.1); Protein, Total 7.9 g/dL (6.0-8.3); Sodium 142 mmol/L (136-145)
[2017-09-20 09:22] LABS: Anisocytosis MODERATE=16-30 cells (100X) (0-5/hpf); Band 3 % (5-11); Lymphocytes 7 % (21-51); MDiff Complete? YES; Macrocytosis SLIGHT = 6-15 cells (100X) (0-5/hpf); Monocytes 3 % (0-10); Neutrophil 87 % (42-75); Nucleated RBC 1 % (0); PLT Morphology Comment Appears Adequate; Polychromasia SLIGHT = 2-3 cells (100X) (0-2/hpf)
--- NOTE | 2017-09-20 10:59 | PDOC.PN ---
- Subjective Encounter Start Date: 09/20/17 Encounter Start Time: 10:58 Subjective: no problems - Objective Resuscitation Status: Resuscitation Status FULL:Full Resuscitation MAR Reviewed: Yes Vital Signs & Weight: Vital Signs (12 hours) Temp Pulse Resp BP Pulse Ox 09/20/17 08:00 98.8 F 80 16 09/20/17 07:15 98.8 F 80 16 115/66 95 Weight Admit Weight 195 lb Weight 201 lb 11.2 oz I&O: 09/19/17 09/20/17 09/21/17 06:59 06:59 06:59 Intake Total 2820 1960 180 Balance 2820 1960 180 Result Diagrams: 09/20/17 08:37 09/20/17 08:37 Phys Exam - Physical Examination Neck: no JVD Respiratory: clear to auscultation bilateral Cardiovascular: RRR, no significant murmur Gastrointestinal: soft, non-tender, positive bowel sounds Musculoskeletal: no edema Dx/Plan (1) Dizziness Code(s): R42 - DIZZINESS AND GIDDINESS Status: Resolved (2) Ecchymosis Code(s): R58 - HEMORRHAGE, NOT ELSEWHERE CLASSIFIED Status: Acute (3) Acute hemolytic anemia Code(s): D59.9 - ACQUIRED HEMOLYTIC ANEMIA, UNSPECIFIED Status: Acute - Plan starting retuxin, still on iv steroids -: Hg adequate -: discuss with oncology * .
[2017-09-20] MEDS: Pantoprazole 40 MG VIAL IVP SCH (17:38)
[2017-09-20 18:05] LABS: Troponin I Less than 0.010 ng/mL (< 0.028)
--- NOTE | 2017-09-20 18:11 | PDOC.EVN ---
Event Note - Event Note Event Note: chest pain. EKG Nl, trop NL, d-dimer Nl. plan iv protonix for reflux/ high dose steroids
[2017-09-20] MEDS ORDERED: Sterile Water 10 ML ONE (19:23)
[2017-09-21] MEDS: diphenhydrAMINE 25 MG CAP PO PRN (00:15)
[2017-09-21] MEDS ORDERED: Sodium Chloride 0.9% 10 ML ONE (07:59)
[2017-09-21 09:23] LABS: ALT (SGPT) 8 U/L (8-55); AST (SGOT) 13 U/L (5-34); Alkaline Phosphatase 74 U/L (40-150); Anion Gap 11 mmol/L (10-20); BUN (Urea Nitrogen) 16 mg/dL (7.0-18.7); Bilirubin, Total 3.6 mg/dL (0.2-1.2); Calc. Creatinine Clearance 140 mL/min (70-130); Calcium 8.9 mg/dL (7.8-10.44); Carbon Dioxide 27 mmol/L (22-29); Chloride 105 mmol/L (98-107); Estimated GFR-MDRD 82; Globulin 3.7 g/dL (2.4-3.5); Glucose 87 mg/dL (70-105); Potassium 3.7 mmol/L (3.5-5.1); Protein, Total 7.7 g/dL (6.0-8.3); Sodium 139 mmol/L (136-145)
[2017-09-21 09:28] LABS: Anisocytosis MARKED = >30 cells (100X) (0-5/hpf); Band 1 % (5-11); Eosinophils 1 % (0-10); Hemoglobin 8.2 g/dL (12.0-16.0); Lymphocytes 10 % (21-51); MDiff Complete? YES; Mean Corpuscular HGB CONC 32.4 g/dL (32.0-36.0); Mean Corpuscular Hemoglobin 34.4 pg (27.0-31.0); Mean Platelet Volume 6.7 fL (7.4-10.4); Metamyelocyte 1 % (0-0); Monocytes 6 % (0-10); Neutrophil 77 % (42-75); Nucleated RBC 2 % (0); Platelet Count 335 thou/uL (130-400); Polychromasia MARKED = >4 cells (100X) (0-2/hpf); Reactive Lymphocytes 4 % (0-10); Red Blood Cell (RBC) Count 2.39 mill/uL (4.20-5.40); Stomatocytes SLIGHT = 2-5 cells (100X) (0-1/hpf); White Blood Cell (WBC) Count 15.3 thou/uL (4.8-10.8)
[2017-09-21] MEDS: methylPREDNISolone Sod Succ/PF 125 MG/2 ML VIAL IVP SCH (09:32)
[2017-09-21] MEDS: Pantoprazole 40 MG VIAL IVP SCH (09:32)
--- NOTE | 2017-09-21 11:48 | PDOC.PN ---
- Subjective Encounter Start Date: 09/21/17 Encounter Start Time: 11:46 Subjective: no recurrence of chest tightness - Objective Resuscitation Status: Resuscitation Status FULL:Full Resuscitation MAR Reviewed: Yes Vital Signs & Weight: Vital Signs (12 hours) Temp Pulse Resp BP Pulse Ox 09/21/17 08:00 98.6 F 74 16 98 09/21/17 07:10 98.6 F 74 16 118/69 98 Weight Admit Weight 195 lb Weight 201 lb 11.2 oz I&O: 09/20/17 09/21/17 09/22/17 06:59 06:59 06:59 Intake Total 1960 1140 Balance 1960 1140 Result Diagrams: 09/21/17 08:31 09/21/17 08:31 Phys Exam - Physical Examination Neck: no JVD Respiratory: clear to auscultation bilateral Cardiovascular: RRR, no significant murmur Gastrointestinal: soft, non-tender Musculoskeletal: no edema Dx/Plan (1) Dizziness Code(s): R42 - DIZZINESS AND GIDDINESS Status: Resolved (2) Ecchymosis Code(s): R58 - HEMORRHAGE, NOT ELSEWHERE CLASSIFIED Status: Acute (3) Acute hemolytic anemia Code(s): D59.9 - ACQUIRED HEMOLYTIC ANEMIA, UNSPECIFIED Status: Acute - Plan cont iv seroids, iv protonix -: receiving iv rituxan today * .
[2017-09-21] MEDS ORDERED: diphenhydrAMINE 25 MG in Sodium Chloride 0.9% 50 ML IVPB SCH (12:00)
[2017-09-21] MEDS ORDERED: Rituximab 500 MG, Rituximab 200 MG in Sodium Chloride 0.9% 500 ML IVPB SCH (12:00)
[2017-09-21] MEDS ORDERED: Acetaminophen 500 MG TAB PO SCH (12:00)
[2017-09-21] MEDS ORDERED: Hydrocortisone Sod Succ/PF 100 mg/2 ml Vial IVP SCH (21:00)
[2017-09-22 05:59] LABS: ALT (SGPT) 7 U/L (8-55); AST (SGOT) 11 U/L (5-34); Albumin 3.7 g/dL (3.5-5.0); Alkaline Phosphatase 69 U/L (40-150); Anion Gap 9 mmol/L (10-20); BUN (Urea Nitrogen) 15 mg/dL (7.0-18.7); Bilirubin, Total 2.6 mg/dL (0.2-1.2); Calc. Creatinine Clearance 149 mL/min (70-130); Calcium 8.6 mg/dL (7.8-10.44); Carbon Dioxide 28 mmol/L (22-29); Chloride 105 mmol/L (98-107); Estimated GFR-MDRD 89; Globulin 3.1 g/dL (2.4-3.5); Glucose 114 mg/dL (70-105); Potassium 4.2 mmol/L (3.5-5.1); Protein, Total 6.8 g/dL (6.0-8.3); Sodium 138 mmol/L (136-145)
[2017-09-22 06:09] LABS: Band 2 % (5-11); Hemoglobin 7.7 g/dL (12.0-16.0); Lymphocytes 11 % (21-51); MDiff Complete? YES; Mean Corpuscular HGB CONC 31.7 g/dL (32.0-36.0); Mean Corpuscular Hemoglobin 34.2 pg (27.0-31.0); Mean Platelet Volume 6.4 fL (7.4-10.4); Monocytes 6 % (0-10); Neutrophil 81 % (42-75); PLT Morphology Comment Appears Adequate; Platelet Count 277 thou/uL (130-400); Red Blood Cell (RBC) Count 2.26 mill/uL (4.20-5.40); White Blood Cell (WBC) Count 12.6 thou/uL (4.8-10.8)
[2017-09-22 07:45] VITALS: BP 112/60; TEMP 98.8
[2017-09-22] MEDS: Pantoprazole 40 MG VIAL IVP SCH (08:22)
--- NOTE | 2017-09-22 09:03 | PDOC.PN ---
- Subjective Encounter Start Date: 09/22/17 Encounter Start Time: 09:01 Patient seen at bedside. No overnight events, no new complaints. - Objective Resuscitation Status: Resuscitation Status FULL:Full Resuscitation Vital Signs & Weight: Vital Signs (12 hours) Temp Pulse Resp BP BP Pulse Ox 09/22/17 07:50 98.8 F 63 12 100 09/22/17 07:40 98.8 F 63 12 112/60 100 09/22/17 04:19 98.2 F 61 16 112/67 98 09/21/17 23:34 98.8 F 67 16 112/61 98 Weight Admit Weight 195 lb Weight 201 lb 11.2 oz I&O: 09/21/17 09/22/17 09/23/17 06:59 06:59 06:59 Intake Total 1140 2020 Balance 1140 2019 Result Diagrams: 09/22/17 05:25 09/22/17 05:25 Phys Exam - Physical Examination Constitutional: NAD HEENT: moist MMs Neck: no JVD Respiratory: no rales Cardiovascular: RRR Gastrointestinal: soft Musculoskeletal: pulses present Neurological: moves all 4 limbs Psychiatric: A&O x 3 Dx/Plan (1) Dizziness Code(s): R42 - DIZZINESS AND GIDDINESS Status: Resolved (2) Acute hemolytic anemia Code(s): D59.9 - ACQUIRED HEMOLYTIC ANEMIA, UNSPECIFIED Status: Acute - Plan cont current plan of care, out of bed/ambulate * Completed course of Rituxan. * Will continue on oral Prednisone for 7 days * Protonix * F/U with Oncology on 09/27/17 * D/C Home if ok with oncology
--- NOTE | 2017-09-22 16:36 | DIS ---
DATE OF ADMISSION: 09/18/2017 DATE OF DISCHARGE: 09/22/2017 DISCHARGE DISPOSITION: Home. DISCHARGE FOLLOWUP: With Dr. Lilly on 09/27/2017. DISCHARGE DIAGNOSES: 1. Anemia secondary to relapsed autoimmune hemolytic anemia. 2. Anxiety. 3. Depression. DISCHARGE MEDICATIONS: 1. Prednisone 40 mg p.o. b.i.d. 2. Protonix 40 mg p.o. daily. 3. Fluticasone. 4. Azelastine. INPATIENT CONSULTATIONS: Dr. Lilly, Hematology/Oncology. INPATIENT PROCEDURES: None. INPATIENT RADIOGRAPHIC EXAMINATIONS: None. BRIEF HOSPITAL COURSE: Ms. Paula Ruiz is a 37-year-old female who was a direct admit from [facility] oncologist's office and after a routine CBC revealed hemoglobin of 5.6 and physical examination con sistent with hemolytic crisis. The patient was further with the patient was then sent as a direct ad fidelia to the oncology floor. While here, the patient received IV steroids as well as 2 units of PRBCs. In addition, she did receive Rituxan. Her hemoglobin has improved. Her H and H on the day of disc harge was 7.7. Her Rituxan has been completed. She will continue with 40 mg of prednisone b.i.d. un til she is seen in followup next week. She is currently resting comfortably. There is no evidence o f symptomatic anemia at this time. She is not short of breath, palpitations dizzy or having any ches t discomfort. She did have one episode of chest discomfort while here and evaluation showed an EKG w ithin normal limits with negative troponin. She is feeling much better. She has been cleared by Onc ology for discharge home and will follow up as an outpatient. She is hemodynamically stable and clin ically appropriate for discharge home today. DISCHARGE DIET: Heart healthy. ACTIVITY: As tolerated. RESTRICTIONS: None. CODE STATUS: FULL CODE. ALLERGIES: SULFA. DISCHARGE FOLLOWUP: With Dr. Lilly 09/27/2017. I explained all this to the patient at bedside. He is agreeable to the plan of discharge. All quest ions have been answered. Total discharge time 32 minutes.
--- NOTE | 2017-10-18 18:50 | EKG ---
Test Reason : Blood Pressure : / mmHG Vent. Rate : 063 BPM Atrial Rate : 063 BPM P-R Int : 114 ms QRS Dur : 088 ms QT Int : 432 ms P-R-T Axes : 015 045 035 degrees QTc Int : 442 ms Normal sinus rhythm Normal ECG Confirmed by DR. Mary GILMAN ([id number]) on 10/18/2017 6:50:26 PM Referred By: BOB Confirmed By:DR. Mary GILMAN
== END 2017-09-22 11:30 | disposition home or self-care (01) | DRG 810 ==
LOC: ONC 10:44
PROVIDERS: ADMIT Internal Medicine Hematology & Oncology; ATTEND Internal Medicine Hematology & Oncology
PROC: 30233N1 Transfusion of Nonautologous Red Blood Cells into Peripheral Vein, Percutaneous Approach (ICD-10-PCS; 2017-09-18)
PROC: 3E0330M Introduction of Antineoplastic, Monoclonal Antibody, into Peripheral Vein, Percutaneous Approach (ICD-10-PCS; principal; 2017-09-21)
DX: D59.1 Other autoimmune hemolytic anemias (principal); F32.9 Major depressive disorder, single episode, unspecified; Z87.891 Personal history of nicotine dependence; Z88.2 Allergy status to sulfonamides; F41.9 Anxiety disorder, unspecified; D59.9 Acquired hemolytic anemia, unspecified
CPT/HCPCS: 36415; 36430; 80053; 84484; 85025; 85379; 85610; 85730; 86850; 86870; 86900; 86901; 86922; 93005; 93010; A4216; C9113; J1200; J1568; J2920; J2930; J7050; J9310; P9016

== ENCOUNTER 2018-09-05 13:06 | Outpatient (CLI) | payer BC ==
--- NOTE | 2018-09-05 14:05 | MMO ---
BILATERAL SCREENING MAMMOGRAM: Date: 09/05/18 HISTORY: 38-year-old female. Routine screening mammography. COMPARISON: None. Baseline mammogram. TECHNIQUE: CC and MLO views of both breasts are submitted for interpretation. This patient's mammogram was reviewed with the assistance of computer-aided detection. FINDINGS: The breasts are composed of scattered fibroglandular tissue. Bilaterally, no suspicious dominant mass , architectural distortion, or suspicious calcifications. IMPRESSION: BIRADS 1: Negative RECOMMENDATION: Annual mammogram. POS: [facility]
== END 2018-09-05 13:07 | disposition home or self-care (01) ==
LOC: SCSMAMMO 13:06
PROVIDERS: ATTEND Family Medicine
DX: Z12.31 Encounter for screening mammogram for malignant neoplasm of breast (principal)
CPT/HCPCS: 77067

== ENCOUNTER 2023-04-27 14:17 | Observation (INO) | payer BC ==
[2023-04-27 15:15] LABS: #Monocytes 0.7 thou/uL (0.11-0.59); #Neutrophils 6.5 thou/uL (1.40-6.50); %Basophils 0.3 % (0.0-1.0); %Eosinophils 0.5 % (0.0-10.0); %Lymphocytes 16.2 % (21.0-51.0); %Monocytes 7.8 % (0.0-10.0); %Neutrophils 74.9 % (42.0-75.0); Hematocrit 43.6 % (36.0-47.0); Hemoglobin 15.1 g/dL (12.0-16.0); Mean Corpuscular HGB CONC 34.6 g/dL (32.0-36.0); Mean Corpuscular Hemoglobin 32.4 pg (27.0-31.0); Mean Corpuscular Volume 93.6 fl (78.0-98.0); Mean Platelet Volume 9.2 fL (7.4-10.4); Platelet Count 399 10x3/uL (130-400); RBC Distribution Width 12.1 % (11.5-14.5); Red Blood Cell (RBC) Count 4.66 mill/uL (4.20-5.40); White Blood Cell (WBC) Count 8.6 10x3/uL (4.8-10.8)
[2023-04-27 15:28] LABS: BHCG - Serum Negative (NEGATIVE); Pregs Control Background? CLEAR/WHITE (CLR/WHITE); Pregs Control Bar Appear? YES (CONTROL BAR)
[2023-04-27 15:42] LABS: ALT (SGPT) 29 U/L (8-55); AST (SGOT) 27 U/L (5-34); Albumin 4.4 g/dL (3.5-5.0); Alkaline Phosphatase 49 U/L (40-110); Anion Gap 16 mmol/L (10-20); BUN (Urea Nitrogen) 13 mg/dL (7.0-18.7); Bilirubin, Total 0.6 mg/dL (0.2-1.2); Calc. Creatinine Clearance 0 mL/min (70-130); Calcium 8.9 mg/dL (7.8-10.44); Carbon Dioxide 20 mmol/L (22-29); Chloride 105 mmol/L (98-107); Estimated GFR 87; Globulin 2.6 g/dL (2.4-3.5); Glucose 112 mg/dL (70-105); Potassium 3.5 mmol/L (3.5-5.1); Sodium 137 mmol/L (136-145)
[2023-04-27 15:43] LABS: Acetaminophen Less than 10 mcg/mL (10.0-30.0); Alcohol Less than 10.0 mg/dL (Less than 10); Salicylate Less than 8.0 mg/dL (15.0-30.0)
[2023-04-27] MEDS ORDERED: Ketorolac Tromethamine 30 MG/ML VIAL ONE ×2 (16:51→17:05)
[2023-04-27] MEDS ORDERED: Ondansetron PF 4 MG/2 ML Vial ONE (16:51)
[2023-04-27] MEDS ORDERED: Acetaminophen 500 MG TAB ONE (16:51)
[2023-04-27] MEDS ORDERED: levETIRAcetam 500 MG/5 ML VIAL ONE ×2 (16:51)
[2023-04-27 16:55] LABS: Amphetamine Not Detected (NotDetected); Barbiturates Screen Not Detected (NotDetected); Benzodiazepine Screen Not Detected (NotDetected); Cocaine Metabolite Screen Not Detected (NotDetected); Methadone Not Detected (NotDetected); Methamphetamine Not Detected (NotDetected); Opiate Screen Not Detected (NotDetected); Oxycodone Screen Not Detected (NotDetected); Phencyclidine (PCP) Not Detected (NotDetected); THC/Cannabinoid Screen Detected (NotDetected); Tricyclic Screen Not Detected (NotDetected)
[2023-04-27] MEDS ORDERED: Ondansetron ODT 4 MG TAB PO PRN (17:52)
[2023-04-27] MEDS ORDERED: HYDROcodone/Acetaminophen 5/325 mg Tablet PO PRN (17:52)
[2023-04-27] MEDS ORDERED: Ondansetron PF 4 MG/2 ML Vial IVP PRN (17:52)
[2023-04-27 19:31] VITALS: BMI 28.7
[2023-04-27] MEDS: levETIRAcetam 500 MG/5 ML VIAL SLOW IVP SCH (20:23)
[2023-04-27] MEDS ORDERED: Lorazepam 1 MG TAB PO PRN (20:23)
[2023-04-27] MEDS: Acetaminophen 325 MG TAB PO PRN (20:23)
[2023-04-27] MEDS ORDERED: Thiamine HCl 200 MG/2 ML VIAL SLOW IVP SCH (20:30)
[2023-04-27] MEDS ORDERED: Electrolyte Replacement Protocol 1 EACH FS SCH (20:30)
[2023-04-27] MEDS ORDERED: Potassium Chloride 20 MEQ TAB PO SCH (21:45)
[2023-04-27 21:48] LABS: Magnesium 2.2 mg/dL (1.6-2.6); Phosphorus 3.9 mg/dL (2.3-4.7)
[2023-04-28 05:20] LABS: #Eosinphils 0.1 thou/uL (0.0-0.7); #Neutrophils 5.1 thou/uL (1.40-6.50); %Basophils 0.5 % (0.0-1.0); %Eosinophils 0.8 % (0.0-10.0); %Lymphocytes 18.9 % (21.0-51.0); %Monocytes 12.9 % (0.0-10.0); %Neutrophils 66.6 % (42.0-75.0); Mean Corpuscular Hemoglobin 32.9 pg (27.0-31.0); Mean Corpuscular Volume 94.1 fl (78.0-98.0); Mean Platelet Volume 9.2 fL (7.4-10.4); Platelet Count 326 10x3/uL (130-400); RBC Distribution Width 12.2 % (11.5-14.5); Red Blood Cell (RBC) Count 4.25 mill/uL (4.20-5.40); White Blood Cell (WBC) Count 7.7 10x3/uL (4.8-10.8)
[2023-04-28 05:43] LABS: Anion Gap 12 mmol/L (10-20); BUN (Urea Nitrogen) 11 mg/dL (7.0-18.7); Calc. Creatinine Clearance 113 mL/min (70-130); Calcium 8.4 mg/dL (7.8-10.44); Carbon Dioxide 20 mmol/L (22-29); Chloride 110 mmol/L (98-107); Estimated GFR 99; Glucose 88 mg/dL (70-105); Potassium 4.1 mmol/L (3.5-5.1); Sodium 138 mmol/L (136-145)
[2023-04-28] MEDS: levETIRAcetam 500 MG/5 ML VIAL SLOW IVP SCH (08:40)
[2023-04-28] MEDS: Acetaminophen 325 MG TAB PO PRN ×2 (08:40→15:55)
[2023-04-28] MEDS ORDERED: Multivit, Therapeutic 1 TAB PO SCH (09:00)
[2023-04-28] MEDS ORDERED: Folic Acid 1 MG TAB PO SCH (09:00)
[2023-04-28 11:22] LABS: Bacteria/HPF 4+ HPF (None Seen); Bilirubin Negative (Negative); Blood, Urine Negative (Negative); CAUTI Indications for Culture Alt mental st,lethar; Clarity Clear (Clear); Glucose, Urine (Dipstick) Normal (Negative); Ketone, Urine Negative (Negative); Leukocyte Negative Leu/uL (Negative); Nitrite Negative (Negative); Protein, Urine (Dipstick) Negative (Neg-Trace); RBC/HPF 0-3 HPF (0-3); Specific Gravity, Urine 1.018 (1.002-1.036); Squamous Epithelial 0-3 HPF (0-3); Urobilinogen Normal mg/dL (Less than 2)
[2023-04-28 11:25] LABS: Urine Culture Reflex No No
[2023-04-28 15:43] VITALS: TEMP 98
[2023-04-28 16:37] VITALS: BP 109/75
[2023-04-28] MEDS ORDERED: Lorazepam 1 MG TAB PO PRN (20:24)
[2023-04-29] MEDS ORDERED: Lorazepam 1 MG TAB PO PRN (20:24)
[2023-04-30] MEDS ORDERED: Lorazepam 0.5 MG TAB PO PRN (20:24)
[2023-04-30] MEDS ORDERED: Thiamine 100 MG TAB PO SCH (20:30)
== END 2023-04-28 17:37 | disposition home or self-care (01) ==
LOC: ERS 14:17 → 2SE 17:11
PROVIDERS: ADMIT Internal Medicine; ATTEND Internal Medicine
DX: R56.9 Unspecified convulsions (principal); G93.0 Cerebral cysts; F10.90 Alcohol use, unspecified, uncomplicated; F12.10 Cannabis abuse, uncomplicated; Z87.891 Personal history of nicotine dependence; Z90.49 Acquired absence of other specified parts of digestive tract; Z88.2 Allergy status to sulfonamides
CPT/HCPCS: 36415; 70450; 70553; 80048; 80053; 80306; 80307; 81001; 83735; 84100; 84146; 84443; 84703; 85025; 93005; 96361; 96365; 96372; 96375; 96376; G0378; J1650; J1885; J1953; J2405; J3411

== ENCOUNTER 2023-05-23 13:47 | Outpatient (CLI) | payer BC | END 2023-05-23 13:48 | disposition home or self-care (01) | LOC: BICMAMMO 13:47 | PROVIDERS: ATTEND Family Medicine | DX: N64.89 Other specified disorders of breast (principal) | CPT/HCPCS: G0279 ==

== ENCOUNTER 2024-03-11 12:24 | Inpatient (IN) | payer BC ==
[~2024-03-11 12:24] MED LIST: Iopamidol-370 76% 500 ML MDV (1 ML CHARGE) ONE
[2024-03-11 13:25] LABS: #Basophils 0.03 10x3/uL (0.0-0.2); #Eosinphils Less than 0.03 10x3/uL (0.0-0.7); %Basophils 0.3 % (0.0-1.0); %Lymphocytes 4.4 % (21.0-51.0); %Monocytes 6.6 % (0.0-10.0); %Neutrophils 87.7 % (42.0-75.0); Hematocrit 35.8 % (36.0-47.0); Hemoglobin 11.7 g/dL (12.0-16.0); Mean Corpuscular HGB CONC 32.7 g/dL (32.0-36.0); Mean Corpuscular Hemoglobin 30.5 pg (27.0-31.0); Mean Corpuscular Volume 93.5 fL (78.0-98.0); Mean Platelet Volume 8.5 fL (7.4-10.4); Platelet Count 1265 10x3/uL (130-400); RBC Distribution Width 14.2 % (11.5-14.5); Red Blood Cell (RBC) Count 3.83 mill/uL (4.20-5.40)
[2024-03-11 13:40] LABS: ALT (SGPT) 16 U/L (8-55); AST (SGOT) 32 U/L (5-34); Albumin 2.6 g/dL (3.5-5.0); Alkaline Phosphatase 84 U/L (40-110); Anion Gap 26 mmol/L (10-20); BUN (Urea Nitrogen) 8 mg/dL (7.0-18.7); Bilirubin, Total 0.5 mg/dL (0.2-1.2); Calc. Creatinine Clearance 0 mL/min (70-130); Calcium 9.8 mg/dL (7.8-10.44); Carbon Dioxide 15 mmol/L (22-29); Chloride 97 mmol/L (98-107); Estimated GFR 98; Globulin 2.7 g/dL (2.4-3.5); Glucose 66 mg/dL (70-105); Lipase 47 U/L (8-78); Potassium 3.5 mmol/L (3.5-5.1); Protein, Total 5.3 g/dL (6.0-8.3); Sodium 134 mmol/L (136-145)
[2024-03-11 14:05] LABS: Platelet Adequacy Comment Appears Increased; Polychromasia SLIGHT = 2-3 cells (100X) (0-2/hpf); Reflex for Review?? YES
[2024-03-11 14:11] LABS: INR-International Normal Ratio 1.1; PTT 32.5 sec (22.9-36.1); Prothrombin Time 13.7 sec (12.0-14.7)
[2024-03-11] MEDS ORDERED: Dextrose 10% in Water 250 ML ONE (14:39)
[2024-03-11 15:06] LABS: BHCG - Serum Negative (NEGATIVE); Pregs Control Background? CLEAR/WHITE (CLR/WHITE); Pregs Control Bar Appear? YES (CONTROL BAR)
[2024-03-11 15:17] LABS: Iron 129 ug/dL (50-170); Iron Binding Capacity, Total 234 mcg/dL (265-497); Magnesium 1.8 mg/dL (1.6-2.6)
[2024-03-11] MEDS ORDERED: Cefepime 2 GM VIAL ONE (16:05)
[2024-03-11] MEDS ORDERED: Sodium Chloride 0.9% 100 ML ONE (16:05)
[2024-03-11 16:15] LABS: Bacteria/HPF 3+ HPF (None Seen); Bilirubin 1+ (Negative); Blood, Urine Negative (Negative); CAUTI Indications for Culture Pelvic or flank pain; Clarity Turbid (Clear); Glucose, Urine (Dipstick) Normal (Negative); Ketone, Urine Greater than 150 mg/dL (Negative); Leukocyte Negative Leu/uL (Negative); Nitrite Negative (Negative); Protein, Urine (Dipstick) 30 mg/dL (Neg-Trace); RBC/HPF 0-3 HPF (0-3); Specific Gravity, Urine 1.029 (1.002-1.036); Squamous Epithelial 0-3 HPF (0-3); Urobilinogen 3 mg/dL (Less than 2)
[2024-03-11 16:16] LABS: Urine Culture Reflex No No
[2024-03-11] MEDS ORDERED: Ondansetron ODT 4 MG TAB PO PRN (16:22)
[2024-03-11] MEDS ORDERED: Acetaminophen 650 MG Suppository PR PRN (16:22)
[2024-03-11] MEDS ORDERED: Sodium Chloride 0.9% 1,000 ML IV SCH (17:30)
[2024-03-11 17:51] LABS: Lactic Acid 4.1 mmol/L (0.5-2.2)
[2024-03-11] MEDS ORDERED: Dextrose 5% in Water 1,000 ML IV PRN (18:03)
[2024-03-11] MEDS ORDERED: Dextrose 50% Abboject 50 ML SYRINGE SLOW IVP PRN (18:03)
[2024-03-11] MEDS ORDERED: Glucagon 1 MG/ML KIT IM PRN (18:03)
[2024-03-11 20:55] VITALS: BMI 30.2
[2024-03-11] MEDS: Acetaminophen 325 MG TAB PO PRN (21:20)
[2024-03-11] MEDS: Vancomycin (BATCH) 2 GM in Premix 1 BAG IVPB SCH (21:36)
[2024-03-11] MEDS: FLUoxetine HCl 20 MG CAP PO SCH (21:36)
[2024-03-12] MEDS ORDERED: Ipratropium/Albuterol 3 ML NEB NEB PRN (06:03)
[2024-03-12] MEDS ORDERED: Electrolyte Replacement Protocol 1 EACH FS SCH (06:06)
[2024-03-12 06:18] LABS: #Basophils Less than 0.03 10x3/uL (0.0-0.2); %Basophils 0.2 % (0.0-1.0); %Eosinophils 1.2 % (0.0-10.0); %Lymphocytes 3.4 % (21.0-51.0); %Monocytes 7.9 % (0.0-10.0); %Neutrophils 86.3 % (42.0-75.0); Hematocrit 31.6 % (36.0-47.0); Hemoglobin 10.6 g/dL (12.0-16.0); Mean Corpuscular HGB CONC 33.5 g/dL (32.0-36.0); Mean Corpuscular Hemoglobin 31.1 pg (27.0-31.0); Mean Corpuscular Volume 92.7 fL (78.0-98.0); Mean Platelet Volume 8.4 fL (7.4-10.4); Platelet Count 999 10x3/uL (130-400); RBC Distribution Width 14.3 % (11.5-14.5); Red Blood Cell (RBC) Count 3.41 mill/uL (4.20-5.40)
[2024-03-12 06:54] LABS: Anion Gap 19 mmol/L (10-20); BUN (Urea Nitrogen) 7 mg/dL (7.0-18.7); Calc. Creatinine Clearance 125 mL/min (70-130); Calcium 9.3 mg/dL (7.8-10.44); Carbon Dioxide 17 mmol/L (22-29); Chloride 99 mmol/L (98-107); Estimated GFR 105; Glucose 95 mg/dL (70-105); Potassium 3.1 mmol/L (3.5-5.1); Sodium 132 mmol/L (136-145)
[2024-03-12 08:56] LABS: Fluid, pH - Pleural Fld 7.346 (7.60 - 7.66)
[2024-03-12] MEDS ORDERED: Vancomycin 1.5 GM in Sodium Chloride 0.9% 250 ML 300 ML IVPB SCH (09:00)
[2024-03-12] MEDS: Vancomycin (BATCH) 1.25 GM in Premix 1 BAG IVPB SCH (09:24)
[2024-03-12] MEDS: Cefepime 2 GM in Sodium Chloride 0.9% 100 ML IVPB SCH (09:24)
[2024-03-12] MEDS: Enoxaparin 40 MG (0.4 mL) SYRINGE SC SCH (09:25)
[2024-03-12] MEDS: FLUoxetine HCl 20 MG CAP PO SCH (09:25)
[2024-03-12] MEDS: Famotidine 20 MG TAB PO SCH (09:25)
[2024-03-12] MEDS: Potassium Chloride 20 MEQ TAB PO SCH (09:25)
[2024-03-12] MEDS: Magnesium 2 GM/50 ML(in water) 2 GM in Premix 1 BAG IVPB SCH (09:25)
[2024-03-12 10:07] LABS: Pleural Fluid, LDH 2293 U/L (Not Available)
[2024-03-12 10:11] LABS: Fluid, Triglycerides 48 mg/dL (Not Available); Pleural Fluid, Amylase Less than 30 U/L (Not Available); Pleural Fluid, Glucose 28 mg/dL; Pleural Fluid, Protein 2.5 g/dL
[2024-03-12 10:15] LABS: RBC Count-Automated (BF) 607 /cu.mm; WBC/Nucleated-Auto (BF) 6042 /cu.mm
[2024-03-12 11:37] LABS: Body Fluid Source Thoracentesis Fluid; Tube # 3
[2024-03-12 11:38] LABS: BF Color Yellow; Clarity Cloudy/Turbid (Clear)
[2024-03-12 11:45] LABS: BF Segmented Neutrophils 8 %; Cell Count Non Hematic 89 %; Lymphocytes 3 %
[2024-03-12 12:40] LABS: Potassium 3.6 mmol/L (3.5-5.1)
[2024-03-13 09:30] LABS: Vancomycin, Random 14.8 ug/mL (See Comment)
[2024-03-13 09:47] LABS: Anion Gap 19 mmol/L (10-20); BUN (Urea Nitrogen) 8 mg/dL (7.0-18.7); Calc. Creatinine Clearance 137 mL/min (70-130); Calcium 9.5 mg/dL (7.8-10.44); Carbon Dioxide 17 mmol/L (22-29); Chloride 103 mmol/L (98-107); Estimated GFR 110; Glucose 80 mg/dL (70-105); Magnesium 1.9 mg/dL (1.6-2.6); Sodium 135 mmol/L (136-145)
[2024-03-13 10:18] LABS: #Basophils 0.03 10x3/uL (0.0-0.2); %Basophils 0.3 % (0.0-1.0); %Eosinophils 0.8 % (0.0-10.0); %Lymphocytes 6.5 % (21.0-51.0); %Monocytes 5.8 % (0.0-10.0); %Neutrophils 85.8 % (42.0-75.0); Hematocrit 34.4 % (36.0-47.0); Hemoglobin 11.2 g/dL (12.0-16.0); Mean Corpuscular HGB CONC 32.6 g/dL (32.0-36.0); Mean Corpuscular Hemoglobin 30.4 pg (27.0-31.0); Mean Corpuscular Volume 93.5 fL (78.0-98.0); Mean Platelet Volume 8.5 fL (7.4-10.4); Platelet Count 1169 10x3/uL (130-400); RBC Distribution Width 14.4 % (11.5-14.5); Red Blood Cell (RBC) Count 3.68 mill/uL (4.20-5.40)
[2024-03-13] MEDS: Magnesium 2 GM/50 ML(in water) 2 GM in Premix 1 BAG IVPB SCH (12:19)
[2024-03-13] MEDS ORDERED: Iopamidol-370 76% 500 ML MDV (1 ML CHARGE) ONE (15:29)
[2024-03-13] MEDS: Vancomycin (BATCH) 1.25 GM in Premix 1 BAG IVPB SCH (20:51)
[2024-03-14 04:11] LABS: #Basophils 0.06 10x3/uL (0.0-0.2); %Basophils 0.6 % (0.0-1.0); %Eosinophils 0.7 % (0.0-10.0); %Lymphocytes 3.9 % (21.0-51.0); %Monocytes 6.5 % (0.0-10.0); %Neutrophils 87.2 % (42.0-75.0); Hematocrit 33.6 % (36.0-47.0); Mean Corpuscular HGB CONC 32.7 g/dL (32.0-36.0); Mean Corpuscular Hemoglobin 30.3 pg (27.0-31.0); Mean Corpuscular Volume 92.6 fL (78.0-98.0); Mean Platelet Volume 8.6 fL (7.4-10.4); Platelet Count 956 10x3/uL (130-400); RBC Distribution Width 14.5 % (11.5-14.5); Red Blood Cell (RBC) Count 3.63 mill/uL (4.20-5.40)
[2024-03-14 04:37] LABS: Anion Gap 23 mmol/L (10-20); BUN (Urea Nitrogen) 11 mg/dL (7.0-18.7); Calc. Creatinine Clearance 135 mL/min (70-130); Calcium 9.1 mg/dL (7.8-10.44); Carbon Dioxide 13 mmol/L (22-29); Chloride 102 mmol/L (98-107); Estimated GFR 110; Glucose 78 mg/dL (70-105); Potassium 3.6 mmol/L (3.5-5.1); Sodium 134 mmol/L (136-145)
[2024-03-14] MEDS ORDERED: Lidocaine 1% PF 5 ML VIAL ONE ×2 (15:04→16:26)
[2024-03-14] MEDS ORDERED: Sodium Bicarbonate 2.5 MEQ/5 ML SDV ONE (15:04)
[2024-03-14] MEDS: HYDROcodone/Acetaminophen 5/325 mg Tablet PO PRN (18:25)
[2024-03-15 04:17] LABS: #Basophils 0.04 10x3/uL (0.0-0.2); %Basophils 0.3 % (0.0-1.0); %Eosinophils 0.7 % (0.0-10.0); %Lymphocytes 2.6 % (21.0-51.0); %Monocytes 5.2 % (0.0-10.0); %Neutrophils 90.2 % (42.0-75.0); Hematocrit 31.8 % (36.0-47.0); Hemoglobin 10.5 g/dL (12.0-16.0); Mean Corpuscular Hemoglobin 30.8 pg (27.0-31.0); Mean Corpuscular Volume 93.3 fL (78.0-98.0); Mean Platelet Volume 8.7 fL (7.4-10.4); Platelet Count 958 10x3/uL (130-400); RBC Distribution Width 14.6 % (11.5-14.5); Red Blood Cell (RBC) Count 3.41 mill/uL (4.20-5.40)
[2024-03-15 04:39] LABS: Anion Gap 18 mmol/L (10-20); BUN (Urea Nitrogen) 16 mg/dL (7.0-18.7); Calc. Creatinine Clearance 121 mL/min (70-130); Calcium 9.8 mg/dL (7.8-10.44); Carbon Dioxide 17 mmol/L (22-29); Chloride 101 mmol/L (98-107); Estimated GFR 102; Glucose 96 mg/dL (70-105); Potassium 3.4 mmol/L (3.5-5.1); Sodium 133 mmol/L (136-145)
[2024-03-15 04:40] LABS: Vancomycin, Random 33.9 ug/mL (See Comment)
[2024-03-15] MEDS: Potassium Chloride 20 MEQ TAB PO SCH (06:38)
[2024-03-15 12:25] LABS: Anion Gap 20 mmol/L (10-20); BUN (Urea Nitrogen) 19 mg/dL (7.0-18.7); Calc. Creatinine Clearance 116 mL/min (70-130); Calcium 10.4 mg/dL (7.8-10.44); Carbon Dioxide 15 mmol/L (22-29); Chloride 103 mmol/L (98-107); Estimated GFR 95; Glucose 90 mg/dL (70-105); Potassium 4.2 mmol/L (3.5-5.1); Sodium 134 mmol/L (136-145)
[2024-03-15] MEDS: Morphine 2 MG/ML VIAL SLOW IVP PRN (22:39)
[2024-03-16 06:34] LABS: #Basophils 0.04 10x3/uL (0.0-0.2); %Basophils 0.3 % (0.0-1.0); %Eosinophils 1.2 % (0.0-10.0); %Lymphocytes 3.4 % (21.0-51.0); %Monocytes 4.8 % (0.0-10.0); %Neutrophils 89.4 % (42.0-75.0); Hematocrit 33.7 % (36.0-47.0); Hemoglobin 10.8 g/dL (12.0-16.0); Mean Corpuscular Hemoglobin 30.3 pg (27.0-31.0); Mean Corpuscular Volume 94.4 fL (78.0-98.0); Mean Platelet Volume 9.1 fL (7.4-10.4); Platelet Count 962 10x3/uL (130-400); RBC Distribution Width 14.6 % (11.5-14.5); Red Blood Cell (RBC) Count 3.57 mill/uL (4.20-5.40)
[2024-03-16 06:51] LABS: Anion Gap 19 mmol/L (10-20); BUN (Urea Nitrogen) 19 mg/dL (7.0-18.7); Calc. Creatinine Clearance 103 mL/min (70-130); Calcium 10.6 mg/dL (7.8-10.44); Carbon Dioxide 16 mmol/L (22-29); Chloride 101 mmol/L (98-107); Estimated GFR 84; Glucose 74 mg/dL (70-105); Potassium 3.8 mmol/L (3.5-5.1); Sodium 132 mmol/L (136-145)
[2024-03-16] MEDS ORDERED: Vancomycin (BATCH) 1.5 GM in Premix 1 BAG IVPB SCH (09:00)
[2024-03-17] MEDS: HYDROcodone/Acetaminophen 5/325 mg Tablet PO PRN (00:53)
[2024-03-17 04:31] LABS: #Basophils 0.05 10x3/uL (0.0-0.2); %Basophils 0.4 % (0.0-1.0); %Eosinophils 0.7 % (0.0-10.0); %Lymphocytes 2.8 % (21.0-51.0); %Neutrophils 89.9 % (42.0-75.0); Hematocrit 33.4 % (36.0-47.0); Hemoglobin 10.7 g/dL (12.0-16.0); Mean Corpuscular Hemoglobin 29.8 pg (27.0-31.0); Mean Platelet Volume 8.7 fL (7.4-10.4); Platelet Count 950 10x3/uL (130-400); RBC Distribution Width 14.7 % (11.5-14.5); Red Blood Cell (RBC) Count 3.59 mill/uL (4.20-5.40)
[2024-03-17 04:46] LABS: Anion Gap 20 mmol/L (10-20); BUN (Urea Nitrogen) 23 mg/dL (7.0-18.7); Calc. Creatinine Clearance 81 mL/min (70-130); Calcium 11.1 mg/dL (7.8-10.44); Carbon Dioxide 13 mmol/L (22-29); Chloride 102 mmol/L (98-107); Estimated GFR 62; Glucose 80 mg/dL (70-105); Potassium 4.2 mmol/L (3.5-5.1); Sodium 131 mmol/L (136-145)
[2024-03-17] MEDS: fentaNYL 12 mcg Patch TD SCH (11:34)
[2024-03-17] MEDS: Allopurinol 300 MG TAB PO SCH (11:35)
[2024-03-17] MEDS: Furosemide 40 MG (4 mL) VIAL SLOW IVP SCH (17:05)
[2024-03-17] MEDS: Lactated Ringer's 1,000 ML IV SCH ×2 (17:08→18:26)
[2024-03-17] MEDS: Zoledronic Acid 4 MG in Sodium Chloride 0.9% 100 ML IVPB SCH (18:50)
[2024-03-17] MEDS: Cefepime 1 GM in Sodium Chloride 0.9% 100 ML IVPB SCH (22:24)
[2024-03-18] MEDS ORDERED: EPINEPHrine 1 MG/ML VIAL ONE (06:42)
[2024-03-18] MEDS ORDERED: Heparin 10,000 UNITS/ 10 ML VIAL ONE (06:42)
[2024-03-18] MEDS ORDERED: Bupivacaine 0.25% HCL 30 ML VIAL ONE ×2 (06:43→06:56)
[2024-03-18] MEDS ORDERED: Midazolam HCl 2 mg/2 ml Vial ONE (06:44)
[2024-03-18] MEDS ORDERED: fentaNYL 50 mcg/mL 1 mL Vial ONE (06:44)
[2024-03-18 06:46] LABS: #Basophils 0.05 10x3/uL (0.0-0.2); %Basophils 0.3 % (0.0-1.0); %Eosinophils 0.8 % (0.0-10.0); %Lymphocytes 2.7 % (21.0-51.0); %Monocytes 4.1 % (0.0-10.0); %Neutrophils 90.2 % (42.0-75.0); Mean Corpuscular HGB CONC 32.4 g/dL (32.0-36.0); Mean Corpuscular Volume 92.6 fL (78.0-98.0); Platelet Count 997 10x3/uL (130-400); RBC Distribution Width 14.9 % (11.5-14.5); Red Blood Cell (RBC) Count 3.67 mill/uL (4.20-5.40)
[2024-03-18] MEDS ORDERED: Lidocaine 2% PF 5 ML VIAL ONE (06:46)
[2024-03-18 07:05] LABS: ALT (SGPT) 13 U/L (8-55); AST (SGOT) 25 U/L (5-34); Albumin 1.9 g/dL (3.5-5.0); Alkaline Phosphatase 92 U/L (40-110); Anion Gap 19 mmol/L (10-20); BUN (Urea Nitrogen) 31 mg/dL (7.0-18.7); Bilirubin, Total 0.4 mg/dL (0.2-1.2); Calc. Creatinine Clearance 62 mL/min (70-130); Calcium 12.5 mg/dL (7.8-10.44); Carbon Dioxide 15 mmol/L (22-29); Chloride 102 mmol/L (98-107); Estimated GFR 45; Globulin 2.6 g/dL (2.4-3.5); Glucose 73 mg/dL (70-105); Potassium 4.4 mmol/L (3.5-5.1); Protein, Total 4.5 g/dL (6.0-8.3); Sodium 132 mmol/L (136-145)
[2024-03-18] MEDS ORDERED: Lidocaine 1% PF 5 ML VIAL ONE (07:09)
[2024-03-18] MEDS ORDERED: PROPOFOL 20 ML ONE (07:09)
[2024-03-18] MEDS ORDERED: PHENYLEPHRINE-NS 100 MCG/ML 10 ML SYRINGE ONE ×2 (07:27→08:06)
[2024-03-18] MEDS: Allopurinol 300 MG TAB PO SCH (11:02)
[2024-03-18] MEDS: Albumin 25% 100 ML ONE (11:14)
[2024-03-18] MEDS ORDERED: Sodium Chloride 0.9% 500 ML IV SCH (11:15)
[2024-03-18] MEDS: Albumin 25% 25 GM (100 mL) BOT IVPB SCH ×2 (11:36→20:09)
[2024-03-18] MEDS: Rasburicase 3 MG in Sodium Chloride 0.9% 50 ML IVPB SCH (17:19)
[2024-03-18] MEDS ORDERED: Morphine 2 MG/ML VIAL SLOW IVP PRN (18:37)
[2024-03-18] MEDS ORDERED: Furosemide 40 MG (4 mL) VIAL SLOW IVP SCH (18:45)
[2024-03-19 05:28] LABS: #Basophils 0.03 10x3/uL (0.0-0.2); #Eosinphils Less than 0.03 10x3/uL (0.0-0.7); %Basophils 0.1 % (0.0-1.0); %Lymphocytes 0.8 % (21.0-51.0); %Monocytes 3.4 % (0.0-10.0); %Neutrophils 94.5 % (42.0-75.0); Hematocrit 27.6 % (36.0-47.0); Hemoglobin 8.7 g/dL (12.0-16.0); Mean Corpuscular HGB CONC 31.5 g/dL (32.0-36.0); Mean Corpuscular Hemoglobin 29.6 pg (27.0-31.0); Mean Corpuscular Volume 93.9 fL (78.0-98.0); Mean Platelet Volume 8.7 fL (7.4-10.4); Platelet Count 409 10x3/uL (130-400); Red Blood Cell (RBC) Count 2.94 mill/uL (4.20-5.40)
[2024-03-19 06:05] LABS: ALT (SGPT) 6 U/L (8-55); AST (SGOT) 22 U/L (5-34); Alkaline Phosphatase 74 U/L (40-110); Anion Gap 21 mmol/L (10-20); BUN (Urea Nitrogen) 39 mg/dL (7.0-18.7); Bilirubin, Total 0.4 mg/dL (0.2-1.2); Calc. Creatinine Clearance 45 mL/min (70-130); Calcium 12.1 mg/dL (7.8-10.44); Carbon Dioxide 17 mmol/L (22-29); Chloride 101 mmol/L (98-107); Estimated GFR 31; Globulin 1.8 g/dL (2.4-3.5); Glucose 77 mg/dL (70-105); Potassium 4.6 mmol/L (3.5-5.1); Protein, Total 4.8 g/dL (6.0-8.3); Sodium 134 mmol/L (136-145); Uric Acid 6.4 mg/dL (2.6-6.0)
[2024-03-19] MEDS ORDERED: Sodium Bicarbonate 2.5 MEQ/5 ML SDV ONE (08:59)
[2024-03-19] MEDS ORDERED: Lidocaine 1% PF 5 ML VIAL ONE (08:59)
[2024-03-19] MEDS: Sodium Chloride 0.9% 1,000 ML IV SCH (10:30)
[2024-03-19 13:46] LABS: Actual Bicarbonate (HCO3a) 17.9 mEq/L (22-28); Base Excess (BEa) -6.7 mEq/L (-2.0 to +3.0); Calcium, Ionized (arterial) 1.57 mmol/L (1.12-1.30); Carboxyhemoglobin (COHb) 0.2 gm% (0.0-3.0); Hematocrit-ABG 28 % (36.0-47.0); Hemoglobin (Hb) 9.4 g/dL (12.0-16.0); O2 Tension (PaO2), arterial 80.5 mmHg (80.0-100.0); Potassium - ABG Lab 4.49 mmol/L (3.70-5.30); pH, Arterial 7.365 (7.35-7.45)
[2024-03-19 13:48] LABS: Puncture Site RRA
[2024-03-19] MEDS ORDERED: Albumin 25% 25 GM (100 mL) BOT IVPB SCH (14:00)
[2024-03-19 14:20] LABS: Platelet Count 336 10x3/uL (130-400)
[2024-03-19 14:21] LABS: #Basophils Less than 0.03 10x3/uL (0.0-0.2); #Eosinphils Less than 0.03 10x3/uL (0.0-0.7); %Basophils 0.1 % (0.0-1.0); %Eosinophils 0.1 % (0.0-10.0); %Lymphocytes 0.9 % (21.0-51.0); %Monocytes 2.4 % (0.0-10.0); %Neutrophils 95.2 % (42.0-75.0); Hematocrit 26.3 % (36.0-47.0); Hemoglobin 8.3 g/dL (12.0-16.0); Mean Corpuscular HGB CONC 31.6 g/dL (32.0-36.0); Mean Corpuscular Hemoglobin 30.2 pg (27.0-31.0); Mean Corpuscular Volume 95.6 fL (78.0-98.0); Mean Platelet Volume 8.7 fL (7.4-10.4); Platelet Count 338 10x3/uL (130-400); RBC Distribution Width 15.1 % (11.5-14.5); Red Blood Cell (RBC) Count 2.75 mill/uL (4.20-5.40)
[2024-03-19 14:26] LABS: Bilirubin Negative (Negative); Blood, Urine 2+ (Negative); Calcium Oxalate Crystals 1+ HPF (None Seen); Clarity Turbid (Clear); Glucose, Urine (Dipstick) Normal (Negative); Ketone, Urine 10 mg/dL (Negative); Leukocyte Negative Leu/uL (Negative); Mucous/LPF Rare LPF (<2+); Nitrite Negative (Negative); Protein, Urine (Dipstick) 100 mg/dL (Neg-Trace); Specific Gravity, Urine 1.031 (1.002-1.036); Urobilinogen Normal mg/dL (Less than 2); pH, Urine 5.5 (5.0-9.0)
[2024-03-19 14:33] LABS: Prothrombin Time 12.9 sec (12.0-14.7)
[2024-03-19 14:34] LABS: Fibrinogen 305 mg/dL (253-463); PTT 34.1 sec (22.9-36.1)
[2024-03-19 14:36] LABS: Bacteria/HPF 2+ HPF (None Seen); Yeast-Budding Rare HPF (None Seen)
[2024-03-19 14:43] LABS: D-Dimer Test 3.09 mcg/mL (0.27-0.43)
[2024-03-19] MEDS ORDERED: Acetaminophen 325 MG TAB PO SCH (15:30)
[2024-03-19] MEDS: Fosaprepitant Dimeglumine 150 MG in 0.9 % Sodium Chloride 145 ML IVPB SCH (17:17)
[2024-03-19] MEDS: METHYLPREDNISOLONE SOD SUCC IVPB SCH (17:29)
[2024-03-19] MEDS: ADMIXTURE FEE IVPB SCH (17:29)
[2024-03-19] MEDS: [UNRECOGNIZED DRUG - OTHER] IVPB SCH (17:29)
[2024-03-19] MEDS: Dexamethasone 10 MG in Sodium Chloride 0.9% 50 ML IVPB SCH (17:34)
[2024-03-19] MEDS: PALONOSETRON HCL 0.05 MG/ML 5 ML VIAL IVP SCH (17:34)
[2024-03-19] MEDS: Cyclophosphamide 1 GM in Sodium Chloride 0.9% 250 ML 250 ML IVPB SCH (17:56)
[2024-03-19] MEDS: CALCITONIN SALMON SYNTHETIC SC SCH (18:15)
[2024-03-19] MEDS: Calcitonin,Salmon,Synthetic 400 UNITS/2 ML SC SCH (18:22)
[2024-03-19] MEDS: DOXORUBICIN IVPB SCH (18:56)
[2024-03-19] MEDS: SODIUM CHLORIDE 0.9% IVPB SCH (18:56)
[2024-03-19] MEDS: Albumin 25% 25 GM (100 mL) BOT IVPB SCH (20:12)
[2024-03-20 04:19] LABS: #Basophils Less than 0.03 10x3/uL (0.0-0.2); #Eosinphils Less than 0.03 10x3/uL (0.0-0.7); %Basophils 0.1 % (0.0-1.0); %Monocytes 2.1 % (0.0-10.0); %Neutrophils 95.7 % (42.0-75.0); Hematocrit 23.3 % (36.0-47.0); Hemoglobin 7.2 g/dL (12.0-16.0); Mean Corpuscular HGB CONC 30.9 g/dL (32.0-36.0); Mean Corpuscular Hemoglobin 30.4 pg (27.0-31.0); Mean Corpuscular Volume 98.3 fL (78.0-98.0); Platelet Count 318 10x3/uL (130-400); RBC Distribution Width 15.2 % (11.5-14.5); Red Blood Cell (RBC) Count 2.37 mill/uL (4.20-5.40)
[2024-03-20 04:44] LABS: Phosphorus 4.7 mg/dL (2.3-4.7)
[2024-03-20 04:49] LABS: ALT (SGPT) 7 U/L (8-55); AST (SGOT) 22 U/L (5-34); Albumin 3.5 g/dL (3.5-5.0); Alkaline Phosphatase 68 U/L (40-110); Anion Gap 21 mmol/L (10-20); BUN (Urea Nitrogen) 49 mg/dL (7.0-18.7); Bilirubin, Total 0.6 mg/dL (0.2-1.2); Calc. Creatinine Clearance 43 mL/min (70-130); Calcium 11.3 mg/dL (7.8-10.44); Carbon Dioxide 15 mmol/L (22-29); Chloride 106 mmol/L (98-107); Estimated GFR 29; Globulin 1.5 g/dL (2.4-3.5); Glucose 79 mg/dL (70-105); Potassium 4.7 mmol/L (3.5-5.1); Sodium 137 mmol/L (136-145); Uric Acid 3.9 mg/dL (2.6-6.0)
[2024-03-20] MEDS ORDERED: Famotidine 20 MG TAB PO SCH (09:00)
[2024-03-20] MEDS: Calcitonin,Salmon,Synthetic 400 UNITS/2 ML SC SCH (09:33)
[2024-03-20] MEDS: methylPREDNISolone Sod Succ 40 MG VIAL IVP SCH (09:43)
[2024-03-20] MEDS: Pantoprazole 40 MG VIAL IVP SCH (09:44)
[2024-03-20] MEDS ORDERED: diphenhydrAMINE 50 MG/ML VIAL IVP PRN (10:37)
[2024-03-20] MEDS: diphenhydrAMINE 25 MG in Sodium Chloride 0.9% 50 ML IVPB SCH (11:08)
[2024-03-20] MEDS: vinCRIStine Sulfate 2 MG in Sodium Chloride 0.9% 50 ML IVPB SCH (11:08)
[2024-03-20] MEDS: SODIUM CHLORIDE 0.9% IVPB SCH (11:10)
[2024-03-20] MEDS: RITUXAN IVPB SCH (11:10)
[2024-03-20] MEDS: Acetaminophen 650 MG/20.3 ML UDCUP PER TUBE PRN (11:11)
[2024-03-20] MEDS: Albumin 25% 25 GM (100 mL) BOT IVPB SCH (12:51)
[2024-03-20] MEDS: fentaNYL 12 mcg Patch TD SCH (14:52)
[2024-03-20] MEDS ORDERED: methylPREDNISolone Sod Succ/PF 100 MG in Sodium Chloride 0.9% 250 ML 250 ML IVPB SCH (16:00)
[2024-03-20] MEDS ORDERED: METHYLPREDNISOLONE SOD SUCC IVPB SCH (16:00)
[2024-03-20] MEDS ORDERED: ADMIXTURE FEE IVPB SCH (16:00)
[2024-03-20] MEDS ORDERED: [UNRECOGNIZED DRUG - OTHER] IVPB SCH (16:00)
[2024-03-20 21:36] LABS: Hematocrit 23.9 % (36.0-47.0); Hemoglobin 7.7 g/dL (12.0-16.0)
[2024-03-21 03:43] LABS: #Basophils Less than 0.03 10x3/uL (0.0-0.2); #Eosinphils Less than 0.03 10x3/uL (0.0-0.7); %Basophils 0.1 % (0.0-1.0); %Monocytes 1.9 % (0.0-10.0); Hematocrit 22.7 % (36.0-47.0); Hemoglobin 7.6 g/dL (12.0-16.0); Mean Corpuscular HGB CONC 33.5 g/dL (32.0-36.0); Mean Corpuscular Hemoglobin 30.6 pg (27.0-31.0); Mean Corpuscular Volume 91.5 fL (78.0-98.0); Mean Platelet Volume 9.1 fL (7.4-10.4); Platelet Count 306 10x3/uL (130-400); RBC Distribution Width 16.7 % (11.5-14.5); Red Blood Cell (RBC) Count 2.48 mill/uL (4.20-5.40)
[2024-03-21 04:22] LABS: ALT (SGPT) 8 U/L (8-55); AST (SGOT) 27 U/L (5-34); Albumin 3.6 g/dL (3.5-5.0); Alkaline Phosphatase 55 U/L (40-110); Anion Gap 18 mmol/L (10-20); BUN (Urea Nitrogen) 83 mg/dL (7.0-18.7); Bilirubin, Total 0.5 mg/dL (0.2-1.2); Calc. Creatinine Clearance 51 mL/min (70-130); Calcium 9.6 mg/dL (7.8-10.44); Carbon Dioxide 17 mmol/L (22-29); Chloride 108 mmol/L (98-107); Estimated GFR 36; Globulin 1.4 g/dL (2.4-3.5); Glucose 198 mg/dL (70-105); Potassium 5.3 mmol/L (3.5-5.1); Sodium 138 mmol/L (136-145)
[2024-03-21] MEDS ORDERED: Albumin 25% 25 GM (100 mL) BOT IVPB SCH (12:00)
[2024-03-21] MEDS: Albumin 25% 25 GM (100 mL) BOT IVPB SCH (12:37)
[2024-03-21] MEDS: PEGFILGRASTIM-PBBK 6 MG/0.6 ML SYRINGE SQ SCH (23:24)
[2024-03-22 05:22] LABS: #Basophils Less than 0.03 10x3/uL (0.0-0.2); #Eosinphils Less than 0.03 10x3/uL (0.0-0.7); %Basophils 0.1 % (0.0-1.0); %Lymphocytes 0.3 % (21.0-51.0); %Monocytes 1.9 % (0.0-10.0); %Neutrophils 96.7 % (42.0-75.0); Hematocrit 23.4 % (36.0-47.0); Hemoglobin 7.4 g/dL (12.0-16.0); Mean Corpuscular HGB CONC 31.6 g/dL (32.0-36.0); Mean Corpuscular Hemoglobin 30.1 pg (27.0-31.0); Mean Corpuscular Volume 95.1 fL (78.0-98.0); Mean Platelet Volume 9.4 fL (7.4-10.4); Platelet Count 310 10x3/uL (130-400); RBC Distribution Width 16.5 % (11.5-14.5); Red Blood Cell (RBC) Count 2.46 mill/uL (4.20-5.40)
[2024-03-22 05:41] LABS: ALT (SGPT) 5 U/L (8-55); AST (SGOT) 17 U/L (5-34); Alkaline Phosphatase 57 U/L (40-110); Anion Gap 19 mmol/L (10-20); BUN (Urea Nitrogen) 120 mg/dL (7.0-18.7); Bilirubin, Total 0.4 mg/dL (0.2-1.2); Calc. Creatinine Clearance 41 mL/min (70-130); Calcium 8.8 mg/dL (7.8-10.44); Carbon Dioxide 16 mmol/L (22-29); Chloride 110 mmol/L (98-107); Estimated GFR 26; Globulin 1.3 g/dL (2.4-3.5); Glucose 266 mg/dL (70-105); Potassium 5.7 mmol/L (3.5-5.1); Protein, Total 5.3 g/dL (6.0-8.3); Sodium 139 mmol/L (136-145); Uric Acid 6.9 mg/dL (2.6-6.0)
[2024-03-22] MEDS: Metoclopramide HCl 10 MG (2 mL) VIAL IVP SCH (06:01)
[2024-03-22] MEDS ORDERED: Insulin Regular 300 UNITS/3 ML VIAL IVP SCH (06:30)
[2024-03-22] MEDS: Sodium Bicarb 50 MEQ/50 ML Abboject 8.4% SYRINGE IVP SCH (07:03)
[2024-03-22] MEDS: Insulin Regular, Human 100 UNIT/ML 10 ML VIAL IVP SCH (07:03)
[2024-03-22] MEDS: Sodium Chloride 0.9% 1,000 ML IV SCH (10:40)
[2024-03-22 10:44] LABS: Anion Gap 21 mmol/L (10-20); BUN (Urea Nitrogen) 124 mg/dL (7.0-18.7); Calc. Creatinine Clearance 39 mL/min (70-130); Calcium 8.8 mg/dL (7.8-10.44); Carbon Dioxide 16 mmol/L (22-29); Chloride 111 mmol/L (98-107); Estimated GFR 25; Glucose 250 mg/dL (70-105); Potassium 5.8 mmol/L (3.5-5.1); Sodium 142 mmol/L (136-145)
[2024-03-22] MEDS: Furosemide 40 MG (4 mL) VIAL SLOW IVP SCH (11:40)
[2024-03-22] MEDS: Sodium Chloride 0.9% 500 ML IV SCH (11:40)
[2024-03-22] MEDS: Albumin 25% 25 GM (100 mL) BOT IVPB SCH (11:40)
[2024-03-22 12:32] LABS: Bilirubin Negative (Negative); Blood, Urine 3+ (Negative); Glucose, Urine (Dipstick) Normal (Negative); Ketone, Urine Negative (Negative); Leukocyte 500 Leu/uL (Negative); Nitrite Negative (Negative); Protein, Urine (Dipstick) 100 mg/dL (Neg-Trace); RBC/HPF Greater than 50 HPF (0-3); Specific Gravity, Urine 1.014 (1.002-1.036); Squamous Epithelial 0-3 HPF (0-3); Urobilinogen Normal mg/dL (Less than 2); WBC/HPF 21-50 HPF (0-3); Yeast-Hyphae 2+ HPF (None Seen); pH, Urine 5.5 (5.0-9.0)
[2024-03-22 12:47] LABS: Bacteria/HPF 1+ HPF (None Seen); Clarity Turbid (Clear)
[2024-03-22 12:48] LABS: Creatinine, Urine 31.59 mg/dL (47-110); Sodium, Urine Less than 20 mmol/L (Not Available)
[2024-03-22 12:50] LABS: Yeast-Budding 3+ HPF (None Seen)
[2024-03-22 12:51] LABS: Calcium Oxalate Crystals Rare HPF (None Seen)
[2024-03-22] MEDS: Sodium Polystyrene Sulfonate 15 GM (60 mL) BOT PO SCH (15:35)
[2024-03-22] MEDS: Ondansetron PF 4 MG/2 ML Vial IVP PRN (16:45)
[2024-03-23 05:58] LABS: Hematocrit 22.9 % (36.0-47.0); Hemoglobin 7.3 g/dL (12.0-16.0); Mean Corpuscular HGB CONC 31.9 g/dL (32.0-36.0); Mean Corpuscular Hemoglobin 30.7 pg (27.0-31.0); Mean Corpuscular Volume 96.2 fL (78.0-98.0); Mean Platelet Volume 9.7 fL (7.4-10.4); Platelet Count 316 10x3/uL (130-400); RBC Distribution Width 16.2 % (11.5-14.5); Red Blood Cell (RBC) Count 2.38 mill/uL (4.20-5.40)
[2024-03-23] MEDS: Furosemide 40 MG (4 mL) VIAL SLOW IVP SCH (06:24)
[2024-03-23 06:29] LABS: Anisocytosis SLIGHT = 6-15 cells HPF (0-5); Band 4 % (5-11); Hypochromia SLIGHT = 6-15 cells HPF (0-5); Monocytes 2 % (0-10); Neutrophil 94 % (42-75); Platelet Adequacy Comment Platelets Normal; Polychromasia SLIGHT = 2-3 cells HPF (0-2); Smudge Cells 4.9 %
[2024-03-23 07:09] LABS: BUN (Urea Nitrogen) 125 mg/dL (7.0-18.7)
[2024-03-23 07:10] LABS: Anion Gap 20 mmol/L (10-20); Calc. Creatinine Clearance 32 mL/min (70-130); Carbon Dioxide 14 mmol/L (22-29); Chloride 110 mmol/L (98-107); Estimated GFR 20; Glucose 228 mg/dL (70-105); Potassium 5.5 mmol/L (3.5-5.1); Sodium 138 mmol/L (136-145); Uric Acid 7.8 mg/dL (2.6-6.0)
[2024-03-23] MEDS ORDERED: T SC SCH (09:00)
[2024-03-23] MEDS: Sodium Chloride 0.9% 1,000 ML IV SCH (09:50)
[2024-03-23] MEDS: Enoxaparin 30 MG (0.3 mL) SYRINGE SC SCH (09:57)
[2024-03-23] MEDS: Rasburicase 3 MG in Sodium Chloride 0.9% 50 ML IVPB SCH (11:40)
[2024-03-23] MEDS: Albumin 25% 25 GM (100 mL) BOT IVPB SCH (11:59)
[2024-03-23 13:24] LABS: Bacteria/HPF None Seen HPF (None Seen); Bilirubin Negative (Negative); Blood, Urine 3+ (Negative); Glucose, Urine (Dipstick) Normal (Negative); Ketone, Urine Negative (Negative); Leukocyte 500 Leu/uL (Negative); Nitrite Negative (Negative); Protein, Urine (Dipstick) 100 mg/dL (Neg-Trace); RBC/HPF Greater than 50 HPF (0-3); Specific Gravity, Urine 1.013 (1.002-1.036); Squamous Epithelial 0-3 HPF (0-3); Urobilinogen Normal mg/dL (Less than 2); WBC/HPF Greater than 50 HPF (0-3); pH, Urine 5.5 (5.0-9.0)
[2024-03-23 13:53] LABS: Clarity Cloudy (Clear); Yeast-Budding 4+ HPF (None Seen); Yeast-Hyphae 2+ HPF (None Seen)
[2024-03-24 04:52] LABS: Hematocrit 23.2 % (36.0-47.0); Hemoglobin 7.4 g/dL (12.0-16.0); Mean Corpuscular HGB CONC 31.9 g/dL (32.0-36.0); Mean Corpuscular Volume 93.9 fL (78.0-98.0); Platelet Count 303 10x3/uL (130-400); RBC Distribution Width 16.1 % (11.5-14.5); Red Blood Cell (RBC) Count 2.47 mill/uL (4.20-5.40)
[2024-03-24 05:25] LABS: BUN (Urea Nitrogen) 128 mg/dL (7.0-18.7)
[2024-03-24 05:28] LABS: ALT (SGPT) 7 U/L (8-55); AST (SGOT) 11 U/L (5-34); Albumin 4.2 g/dL (3.5-5.0); Alkaline Phosphatase 57 U/L (40-110); Anion Gap 23 mmol/L (10-20); Bilirubin, Total 0.3 mg/dL (0.2-1.2); Calc. Creatinine Clearance 26 mL/min (70-130); Calcium 7.3 mg/dL (7.8-10.44); Carbon Dioxide 13 mmol/L (22-29); Chloride 111 mmol/L (98-107); Estimated GFR 16; Globulin 1.2 g/dL (2.4-3.5); Glucose 206 mg/dL (70-105); Potassium 5.3 mmol/L (3.5-5.1); Protein, Total 5.4 g/dL (6.0-8.3); Sodium 142 mmol/L (136-145); Uric Acid 6.6 mg/dL (2.6-6.0)
[2024-03-24 08:19] LABS: Anisocytosis SLIGHT = 6-15 cells HPF (0-5); Band 9 % (5-11); Burr Cells SLIGHT = 2-5 cells HPF (0-1); Hypochromia SLIGHT = 6-15 cells HPF (0-5); Monocytes 1 % (0-10); Neutrophil 90 % (42-75); Platelet Adequacy Comment Platelets Normal; Reflex for Review?? YES; Schistocytes SLIGHT = 2-5 cells HPF (0-1)
[2024-03-24] MEDS: Enoxaparin 30 MG (0.3 mL) SYRINGE SC SCH (09:00)
[2024-03-24 16:04] LABS: HBSAB Concentration Less than 8.00 mIU/mL; Hep B Core Total Ab NONREACTIVE (NonReactive); Hep B Core Total Index 0.02 S/CO (0-0.79); Hep B Surf AB NONREACTIVE (NonReactive); Hep B Surf Ag NONREACTIVE S/CO (NonReactive); Hep C IgG Ab NONREACTIVE S/CO (NonReactive); Hep C Index 0.01 S/CO (0-0.79)
[2024-03-25 04:44] LABS: Hematocrit 22.9 % (36.0-47.0); Hemoglobin 7.4 g/dL (12.0-16.0); Mean Corpuscular HGB CONC 32.3 g/dL (32.0-36.0); Mean Corpuscular Hemoglobin 30.5 pg (27.0-31.0); Mean Corpuscular Volume 94.2 fL (78.0-98.0); Mean Platelet Volume 9.9 fL (7.4-10.4); Platelet Count 264 10x3/uL (130-400); RBC Distribution Width 15.8 % (11.5-14.5); Red Blood Cell (RBC) Count 2.43 mill/uL (4.20-5.40)
[2024-03-25 05:10] LABS: Anion Gap 20 mmol/L (10-20); BUN (Urea Nitrogen) 119 mg/dL (7.0-18.7); Calc. Creatinine Clearance 27 mL/min (70-130); Calcium 7.4 mg/dL (7.8-10.44); Carbon Dioxide 15 mmol/L (22-29); Chloride 109 mmol/L (98-107); Estimated GFR 16; Glucose 165 mg/dL (70-105); Potassium 4.6 mmol/L (3.5-5.1); Sodium 139 mmol/L (136-145); Uric Acid 4.9 mg/dL (2.6-6.0)
[2024-03-25 05:16] LABS: Band 3 % (5-11); Hypochromia SLIGHT = 6-15 cells HPF (0-5); Lymphocytes 2 % (21-51); Monocytes 1 % (0-10); Neutrophil 94 % (42-75); Platelet Adequacy Comment Platelets Normal; Polychromasia SLIGHT = 2-3 cells HPF (0-2)
[2024-03-25] MEDS ORDERED: Calcium Carbonate 500 MG ChewTAB PO PRN (18:57)
[2024-03-25] MEDS: Mag-Al 1200 mg/1200 mg/30 ML UDCUP PO PRN (19:15)
[2024-03-25] MEDS: Promethazine HCl 12.5 MG in Sodium Chloride 0.9% 50 ML IVPB SCH (21:33)
[2024-03-26 05:10] LABS: Hematocrit 25.4 % (36.0-47.0); Hemoglobin 8.5 g/dL (12.0-16.0); Mean Corpuscular HGB CONC 33.5 g/dL (32.0-36.0); Mean Corpuscular Hemoglobin 29.7 pg (27.0-31.0); Mean Corpuscular Volume 88.8 fL (78.0-98.0); Mean Platelet Volume 9.9 fL (7.4-10.4); Platelet Count 230 10x3/uL (130-400); RBC Distribution Width 15.1 % (11.5-14.5); Red Blood Cell (RBC) Count 2.86 mill/uL (4.20-5.40)
[2024-03-26 05:19] LABS: Anion Gap 19 mmol/L (10-20); BUN (Urea Nitrogen) 90 mg/dL (7.0-18.7); Calc. Creatinine Clearance 35 mL/min (70-130); Calcium 7.4 mg/dL (7.8-10.44); Carbon Dioxide 20 mmol/L (22-29); Chloride 108 mmol/L (98-107); Estimated GFR 19; Glucose 109 mg/dL (70-105); Potassium 4.3 mmol/L (3.5-5.1); Sodium 143 mmol/L (136-145); Uric Acid 3.4 mg/dL (2.6-6.0)
[2024-03-26 05:46] LABS: Anisocytosis SLIGHT = 6-15 cells HPF (0-5); Band 9 % (5-11); Eosinophils 1 % (0-10); Hypochromia SLIGHT = 6-15 cells HPF (0-5); Macrocytosis SLIGHT = 6-15 cells HPF (0-5); Neutrophil 90 % (42-75); Platelet Adequacy Comment Platelets Normal; Polychromasia SLIGHT = 2-3 cells HPF (0-2)
[2024-03-26] MEDS ORDERED: Allopurinol 300 MG TAB PO SCH (06:50)
[2024-03-26] MEDS: Allopurinol 300 MG TAB PER TUBE SCH (08:06)
[2024-03-26] MEDS: Lansoprazole 30 MG/10 ML UDCUP PER TUBE SCH (08:07)
[2024-03-26] MEDS ORDERED: Heparin 10,000 UNITS/ 10 ML VIAL ONE (10:38)
[2024-03-26] MEDS: Metoclopramide HCl 10 MG (2 mL) VIAL IVP SCH (11:26)
[2024-03-26] MEDS: Polyethylene Glycol 3350 17 GM Packet PER TUBE SCH (11:42)
[2024-03-26] MEDS: Desmopressin Acetate 4 mcg/ml AMPUL IVP SCH ×2 (12:27→12:35)
[2024-03-26] MEDS: Desmopressin 4 mcg/ml MDV 10ml Vial IVP SCH (12:40)
[2024-03-27 04:31] LABS: Anion Gap 17 mmol/L (10-20); BUN (Urea Nitrogen) 57 mg/dL (7.0-18.7); Calc. Creatinine Clearance 40 mL/min (70-130); Calcium 7.6 mg/dL (7.8-10.44); Carbon Dioxide 24 mmol/L (22-29); Chloride 105 mmol/L (98-107); Estimated GFR 23; Glucose 140 mg/dL (70-105); Sodium 142 mmol/L (136-145); Uric Acid 2.4 mg/dL (2.6-6.0)
[2024-03-27 04:42] LABS: Hematocrit 23.8 % (36.0-47.0); Hemoglobin 7.8 g/dL (12.0-16.0); Mean Corpuscular HGB CONC 32.8 g/dL (32.0-36.0); Mean Corpuscular Hemoglobin 29.4 pg (27.0-31.0); Mean Corpuscular Volume 89.8 fL (78.0-98.0); Mean Platelet Volume 10.4 fL (7.4-10.4); Platelet Count 181 10x3/uL (130-400); RBC Distribution Width 15.1 % (11.5-14.5); Red Blood Cell (RBC) Count 2.65 mill/uL (4.20-5.40)
[2024-03-27 06:15] LABS: Band 6 % (5-11); Eosinophils 4 % (0-10); Large Platelets 2.5 % (0-5); Lymphocytes 1 % (21-51); Neutrophil 89 % (42-75); Platelet Adequacy Comment Platelets Normal; RBC Morphology Within Normal Limits; Smudge Cells 4.2 %
[2024-03-27] MEDS: Polyethylene Glycol 3350 17 GM Packet PER TUBE SCH (10:30)
[2024-03-28 06:55] LABS: #Basophils Less than 0.03 10x3/uL (0.0-0.2); %Basophils 0.7 % (0.0-1.0); %Eosinophils 10.7 % (0.0-10.0); %Lymphocytes 14.1 % (21.0-51.0); %Monocytes 14.1 % (0.0-10.0); %Neutrophils 53.7 % (42.0-75.0); Hematocrit 19.5 % (36.0-47.0); Hemoglobin 6.4 g/dL (12.0-16.0); Mean Corpuscular HGB CONC 32.8 g/dL (32.0-36.0); Mean Corpuscular Hemoglobin 29.9 pg (27.0-31.0); Mean Corpuscular Volume 91.1 fL (78.0-98.0); Mean Platelet Volume 9.7 fL (7.4-10.4); Platelet Count 124 10x3/uL (130-400); Red Blood Cell (RBC) Count 2.14 mill/uL (4.20-5.40)
[2024-03-28 07:30] LABS: Anion Gap 16 mmol/L (10-20); BUN (Urea Nitrogen) 60 mg/dL (7.0-18.7); Calc. Creatinine Clearance 37 mL/min (70-130); Calcium 6.4 mg/dL (7.8-10.44); Carbon Dioxide 19 mmol/L (22-29); Chloride 111 mmol/L (98-107); Estimated GFR 22; Glucose 87 mg/dL (70-105); Potassium 3.3 mmol/L (3.5-5.1); Sodium 143 mmol/L (136-145); Uric Acid 2.3 mg/dL (2.6-6.0)
[2024-03-28] MEDS ORDERED: Enoxaparin 30 MG (0.3 mL) SYRINGE SC SCH (09:00)
[2024-03-28 09:22] LABS: Band 4 % (5-11); Eosinophils 16 % (0-10); Lymphocytes 12 % (21-51); Monocytes 4 % (0-10); Neutrophil 64 % (42-75); Platelet Adequacy Comment Platelets Decreased; RBC Morphology Within Normal Limits
[2024-03-28 13:11] LABS: Hematocrit 23.1 % (36.0-47.0); Hemoglobin 7.6 g/dL (12.0-16.0); Mean Corpuscular HGB CONC 32.9 g/dL (32.0-36.0); Mean Corpuscular Hemoglobin 30.3 pg (27.0-31.0); Mean Platelet Volume 10.1 fL (7.4-10.4); Platelet Count 159 10x3/uL (130-400); RBC Distribution Width 14.7 % (11.5-14.5); Red Blood Cell (RBC) Count 2.51 mill/uL (4.20-5.40)
[2024-03-28 13:39] LABS: ALT (SGPT) 10 U/L (8-55); AST (SGOT) 15 U/L (5-34); Albumin 3.1 g/dL (3.5-5.0); Alkaline Phosphatase 78 U/L (40-110); Anion Gap 14 mmol/L (10-20); BUN (Urea Nitrogen) 31 mg/dL (7.0-18.7); Bilirubin, Total 0.5 mg/dL (0.2-1.2); Calc. Creatinine Clearance 57 mL/min (70-130); Calcium 8.3 mg/dL (7.8-10.44); Carbon Dioxide 27 mmol/L (22-29); Chloride 103 mmol/L (98-107); Estimated GFR 36; Globulin 2.2 g/dL (2.4-3.5); Glucose 127 mg/dL (70-105); Potassium 3.3 mmol/L (3.5-5.1); Protein, Total 5.3 g/dL (6.0-8.3); Sodium 141 mmol/L (136-145)
[2024-03-28 15:16] LABS: Band 7 % (5-11); Eosinophils 7 % (0-10); Hypochromia SLIGHT = 6-15 cells HPF (0-5); Lymphocytes 15 % (21-51); Macrocytosis SLIGHT = 6-15 cells HPF (0-5); Monocytes 13 % (0-10); Neutrophil 58 % (42-75); Platelet Adequacy Comment Platelets Normal; Polychromasia SLIGHT = 2-3 cells HPF (0-2)
[2024-03-28] MEDS: Potassium Bicarbonate/Cit Ac 20 MEQ TAB PER TUBE SCH (15:30)
[2024-03-28 17:32] LABS: Uric Acid 1.4 mg/dL (2.6-6.0)
[2024-03-28 20:09] LABS: Potassium 3.9 mmol/L (3.5-5.1)
[2024-03-29 13:21] LABS: Hematocrit 22.9 % (36.0-47.0); Hemoglobin 7.4 g/dL (12.0-16.0); Mean Corpuscular HGB CONC 32.3 g/dL (32.0-36.0); Mean Corpuscular Volume 92.7 fL (78.0-98.0); Mean Platelet Volume 10.2 fL (7.4-10.4); Platelet Count 179 10x3/uL (130-400); RBC Distribution Width 14.6 % (11.5-14.5); Red Blood Cell (RBC) Count 2.47 mill/uL (4.20-5.40)
[2024-03-29 13:29] LABS: Anion Gap 15 mmol/L (10-20); BUN (Urea Nitrogen) 42 mg/dL (7.0-18.7); Calc. Creatinine Clearance 42 mL/min (70-130); Calcium 8.2 mg/dL (7.8-10.44); Carbon Dioxide 26 mmol/L (22-29); Chloride 102 mmol/L (98-107); Estimated GFR 25; Glucose 98 mg/dL (70-105); Sodium 139 mmol/L (136-145)
[2024-03-29 13:46] LABS: Anisocytosis SLIGHT = 6-15 cells HPF (0-5); Band 9 % (5-11); Dohle Bodies SLIGHT; Eosinophils 8 % (0-10); Hypochromia SLIGHT = 6-15 cells HPF (0-5); Large Platelets 23.5 % (0-5); Lymphocytes 26 % (21-51); Monocytes 14 % (0-10); Neutrophil 44 % (42-75); Platelet Adequacy Comment Platelets Normal; Polychromasia SLIGHT = 2-3 cells HPF (0-2); Target Cells SLIGHT = 2-5 cells HPF (0-1); Tear Drops SLIGHT = 2-5 cells HPF (0-1); Toxic Granulation SLIGHT; Vacuoles SLIGHT
[2024-03-29] MEDS: Folic Acid/Vit B Comp W-C PO SCH (21:54)
[2024-03-30 04:57] LABS: Anion Gap 14 mmol/L (10-20); BUN (Urea Nitrogen) 43 mg/dL (7.0-18.7); Calc. Creatinine Clearance 39 mL/min (70-130); Calcium 7.8 mg/dL (7.8-10.44); Carbon Dioxide 26 mmol/L (22-29); Chloride 103 mmol/L (98-107); Estimated GFR 23; Glucose 93 mg/dL (70-105); Potassium 3.9 mmol/L (3.5-5.1); Sodium 139 mmol/L (136-145)
[2024-03-31 04:43] LABS: Hematocrit 20.3 % (36.0-47.0); Hemoglobin 6.7 g/dL (12.0-16.0); Mean Corpuscular Hemoglobin 30.6 pg (27.0-31.0); Mean Corpuscular Volume 92.7 fL (78.0-98.0); Mean Platelet Volume 10.9 fL (7.4-10.4); Platelet Count 234 10x3/uL (130-400); RBC Distribution Width 14.8 % (11.5-14.5); Red Blood Cell (RBC) Count 2.19 mill/uL (4.20-5.40)
[2024-03-31 04:55] LABS: Anion Gap 17 mmol/L (10-20); BUN (Urea Nitrogen) 49 mg/dL (7.0-18.7); Calc. Creatinine Clearance 38 mL/min (70-130); Calcium 7.9 mg/dL (7.8-10.44); Carbon Dioxide 23 mmol/L (22-29); Chloride 104 mmol/L (98-107); Estimated GFR 23; Glucose 101 mg/dL (70-105); Potassium 3.8 mmol/L (3.5-5.1); Sodium 140 mmol/L (136-145)
[2024-03-31 05:08] LABS: Band 29 % (5-11); Eosinophils 3 % (0-10); Hypochromia SLIGHT = 6-15 cells HPF (0-5); Large Platelets 5.9 % (0-5); Lymphocytes 8 % (21-51); Metamyelocyte 1 % (0-0); Monocytes 5 % (0-10); Neutrophil 52 % (42-75); Platelet Adequacy Comment Platelets Normal; Polychromasia SLIGHT = 2-3 cells HPF (0-2); Promyelocytes 1 % (0-0)
[2024-03-31] MEDS: Albumin 25% 25 GM (100 mL) BOT IVPB SCH (11:51)
[2024-03-31] MEDS: Acetaminophen 325 MG TAB PO PRN (23:14)
[2024-04-01 06:25] LABS: Hemoglobin 7.3 g/dL (12.0-16.0); Mean Corpuscular HGB CONC 33.2 g/dL (32.0-36.0); Mean Corpuscular Hemoglobin 30.7 pg (27.0-31.0); Mean Corpuscular Volume 92.4 fL (78.0-98.0); Mean Platelet Volume 10.7 fL (7.4-10.4); Platelet Count 251 10x3/uL (130-400); RBC Distribution Width 15.7 % (11.5-14.5); Red Blood Cell (RBC) Count 2.38 mill/uL (4.20-5.40)
[2024-04-01 06:47] LABS: Anion Gap 15 mmol/L (10-20); BUN (Urea Nitrogen) 49 mg/dL (7.0-18.7); Calc. Creatinine Clearance 39 mL/min (70-130); Calcium 7.8 mg/dL (7.8-10.44); Carbon Dioxide 27 mmol/L (22-29); Chloride 104 mmol/L (98-107); Estimated GFR 24; Glucose 87 mg/dL (70-105); Potassium 3.6 mmol/L (3.5-5.1); Sodium 142 mmol/L (136-145)
[2024-04-01 08:15] LABS: Band 14 % (5-11); Hypochromia SLIGHT = 6-15 cells HPF (0-5); Lymphocytes 2 % (21-51); Microcytosis SLIGHT = 6-15 cells HPF (0-5); Monocytes 5 % (0-10); Neutrophil 79 % (42-75); Platelet Adequacy Comment Platelets Normal
[2024-04-01] MEDS: Pantoprazole DR 40 MG TAB PO SCH (08:41)
[2024-04-01] MEDS: Polyethylene Glycol 3350 17 GM Packet PO SCH (10:30)
[2024-04-01] MEDS: Albumin 25% 25 GM (100 mL) BOT IVPB SCH (12:40)
[2024-04-01 14:00] VITALS: BMI 33.9
[2024-04-02 04:18] LABS: Hematocrit 20.5 % (36.0-47.0); Hemoglobin 6.7 g/dL (12.0-16.0); Mean Corpuscular HGB CONC 32.7 g/dL (32.0-36.0); Mean Corpuscular Hemoglobin 30.2 pg (27.0-31.0); Mean Corpuscular Volume 92.3 fL (78.0-98.0); Mean Platelet Volume 10.5 fL (7.4-10.4); Platelet Count 253 10x3/uL (130-400); RBC Distribution Width 15.4 % (11.5-14.5); Red Blood Cell (RBC) Count 2.22 mill/uL (4.20-5.40)
[2024-04-02 04:46] LABS: ALT (SGPT) 7 U/L (8-55); AST (SGOT) 13 U/L (5-34); Albumin 3.8 g/dL (3.5-5.0); Alkaline Phosphatase 95 U/L (40-110); Anion Gap 16 mmol/L (10-20); BUN (Urea Nitrogen) 45 mg/dL (7.0-18.7); Band 34 % (5-11); Bilirubin, Total 0.4 mg/dL (0.2-1.2); Calc. Creatinine Clearance 45 mL/min (70-130); Calcium 8.1 mg/dL (7.8-10.44); Carbon Dioxide 25 mmol/L (22-29); Chloride 105 mmol/L (98-107); Estimated GFR 28; Globulin 1.5 g/dL (2.4-3.5); Glucose 93 mg/dL (70-105); Hypochromia SLIGHT = 6-15 cells HPF (0-5); Lymphocytes 5 % (21-51); Monocytes 4 % (0-10); Neutrophil 56 % (42-75); Platelet Adequacy Comment Platelets Normal; Poikilocytosis SLIGHT = 6-15 cells HPF (0-5); Protein, Total 5.3 g/dL (6.0-8.3); Sodium 143 mmol/L (136-145)
[2024-04-02] MEDS: Allopurinol 300 MG TAB PO SCH (08:47)
[2024-04-02] MEDS: Potassium Chloride 20 MEQ TAB PO SCH (08:47)
[2024-04-02] MEDS ORDERED: Potassium Chloride 20 MEQ TAB PO SCH (09:30)
[2024-04-02] MEDS: Potassium Bicarbonate/Cit Ac 20 MEQ TAB PO SCH (12:21)
[2024-04-03 04:36] LABS: Hematocrit 24.8 % (36.0-47.0); Hemoglobin 8.1 g/dL (12.0-16.0); Mean Corpuscular HGB CONC 32.7 g/dL (32.0-36.0); Mean Corpuscular Hemoglobin 30.3 pg (27.0-31.0); Mean Corpuscular Volume 92.9 fL (78.0-98.0); Mean Platelet Volume 10.3 fL (7.4-10.4); Platelet Count 295 10x3/uL (130-400); RBC Distribution Width 14.9 % (11.5-14.5); Red Blood Cell (RBC) Count 2.67 mill/uL (4.20-5.40)
[2024-04-03 04:44] LABS: Anion Gap 13 mmol/L (10-20); BUN (Urea Nitrogen) 37 mg/dL (7.0-18.7); Calc. Creatinine Clearance 53 mL/min (70-130); Calcium 7.9 mg/dL (7.8-10.44); Carbon Dioxide 25 mmol/L (22-29); Chloride 108 mmol/L (98-107); Estimated GFR 34; Glucose 88 mg/dL (70-105); Potassium 3.4 mmol/L (3.5-5.1); Sodium 143 mmol/L (136-145)
[2024-04-03 05:12] LABS: Band 29 % (5-11); Eosinophils 2 % (0-10); Hypochromia SLIGHT = 6-15 cells HPF (0-5); Lymphocytes 1 % (21-51); Monocytes 6 % (0-10); Neutrophil 60 % (42-75); Nucleated RBC (Manual Ct) 1 % (0); Platelet Adequacy Comment Platelets Normal; Polychromasia SLIGHT = 2-3 cells HPF (0-2)
[2024-04-03] MEDS: Potassium Bicarbonate/Cit Ac 20 MEQ TAB PO SCH (09:12)
[2024-04-03] MEDS: Potassium Chloride 20 MEQ TAB PO SCH (10:17)
[2024-04-03 16:05] VITALS: BP 118/71; TEMP 98.3
== END 2024-04-03 16:40 | disposition home health service (06) | DRG 823 ==
LOC: ERS 12:24 → SUATTDRO 12:24 → IMCU/EMU 16:26 → CCU 03-19 14:25 → IMCU/EMU 03-27 15:52 → MSONC 04-01 10:01
PROVIDERS: ADMIT Family Medicine; ATTEND Internal Medicine
PROC: 07B53ZX Excision of Right Axillary Lymphatic, Percutaneous Approach, Diagnostic (ICD-10-PCS; principal; 2024-03-14)
PROC: 0W9G3ZZ Drainage of Peritoneal Cavity, Percutaneous Approach (ICD-10-PCS; 2024-03-14)
PROC: 0JH60WZ Insertion of Totally Implantable Vascular Access Device into Chest Subcutaneous Tissue and Fascia, Open Approach (ICD-10-PCS; 2024-03-18)
PROC: B5131ZA Fluoroscopy of Right Jugular Veins using Low Osmolar Contrast, Guidance (ICD-10-PCS; 2024-03-18)
PROC: 05HM33Z Insertion of Infusion Device into Right Internal Jugular Vein, Percutaneous Approach (ICD-10-PCS; 2024-03-18)
PROC: 0W993ZZ Drainage of Right Pleural Cavity, Percutaneous Approach (ICD-10-PCS; 2024-03-18)
PROC: 3E033XZ Introduction of Vasopressor into Peripheral Vein, Percutaneous Approach (ICD-10-PCS; 2024-03-18)
PROC: 30233J1 Transfusion of Nonautologous Serum Albumin into Peripheral Vein, Percutaneous Approach (ICD-10-PCS; 2024-03-18)
PROC: 0W9G3ZZ Drainage of Peritoneal Cavity, Percutaneous Approach (ICD-10-PCS; 2024-03-19)
PROC: 4A033R1 Measurement of Arterial Saturation, Peripheral, Percutaneous Approach (ICD-10-PCS; 2024-03-19)
PROC: 30233N1 Transfusion of Nonautologous Red Blood Cells into Peripheral Vein, Percutaneous Approach (ICD-10-PCS; 2024-03-20)
PROC: 02HV33Z Insertion of Infusion Device into Superior Vena Cava, Percutaneous Approach (ICD-10-PCS; 2024-03-24)
PROC: B5181ZA Fluoroscopy of Superior Vena Cava using Low Osmolar Contrast, Guidance (ICD-10-PCS; 2024-03-24)
DX: C83.34 Diffuse large B-cell lymphoma, lymph nodes of axilla and upper limb (principal); J96.01 Acute respiratory failure with hypoxia; N17.0 Acute kidney failure with tubular necrosis; C78.6 Secondary malignant neoplasm of retroperitoneum and peritoneum; D59.10 Autoimmune hemolytic anemia, unspecified; E87.20 Acidosis, unspecified; D61.818 Other pancytopenia; J91.0 Malignant pleural effusion; R18.0 Malignant ascites; J90 Pleural effusion, not elsewhere classified; J98.11 Atelectasis; R18.8 Other ascites; Z51.5 Encounter for palliative care; R59.0 Localized enlarged lymph nodes; D64.9 Anemia, unspecified; E79.0 Hyperuricemia without signs of inflammatory arthritis and tophaceous disease; L40.9 Psoriasis, unspecified; E87.5 Hyperkalemia; D75.839 Thrombocytosis, unspecified; R82.994 Hypercalciuria; Z88.2 Allergy status to sulfonamides; Z79.899 Other long term (current) drug therapy; Z90.49 Acquired absence of other specified parts of digestive tract; Z98.891 History of uterine scar from previous surgery; R10.13 Epigastric pain
CPT/HCPCS: 36415; 36416; 36430; 36600; 38505; 49083; 71045; 71275; 74018; 74150; 74177; 76942; 80048; 80053; 80202; 81001; 81270; 82040; 82150; 82378; 82570; 82728; 82805; 82945; 83540; 83550; 83605; 83615; 83690; 83735; 83880; 83970; 83986; 84100; 84145; 84157; 84300; 84443; 84478; 84550; 84703; 85025; 85049; 85060; 85300; 85362; 85384; 85610; 85730; 86304; 86704; 86706; 86803; 86850; 86900; 86901; 87040; 87071; 87086; 87116; 87206; 87340; 88112; 88121; 88184; 88305; 88307; 88333; 88334; 88341; 88342; 89051; 90935; 93005; 93306; 93970; 94660; 94760; 96361; 96365; 96366; 96367; A7048; C1788; C9113; G0257; J0171; J0630; J0665; J0692; J1100; J1200; J1453; J1642; J1644; J1650; J1815; J1940; J2001; J2250; J2272; J2405; J2469; J2550; J2597; J2704; J2765; J2783; J2920; J3010; J3370; J3475; J3489; J3490; J7030; J7050; J7120; J9075; J9312; J9370; P9016; P9047; Q2050; Q5130; Q9967

== ENCOUNTER 2024-05-13 06:02 | Day surgery (SDC) | payer BC ==
[2024-05-09 12:01] VITALS: BMI 26.6
[2024-05-13] MEDS ORDERED: Bupivacaine PF 0.5% 30 ML VIAL ONE (06:35)
[2024-05-13] MEDS ORDERED: EPINEPHrine 1 MG/ML VIAL ONE (06:35)
[2024-05-13] MEDS ORDERED: PROPOFOL 20 ML ONE (06:53)
[2024-05-13] MEDS ORDERED: fentaNYL 50 mcg/mL 1 mL Vial ONE (06:54)
[2024-05-13] MEDS ORDERED: Midazolam HCl 2 mg/2 ml Vial ONE (07:28)
== END 2024-05-13 08:22 | disposition home or self-care (01) ==
LOC: SDC 06:02
PROVIDERS: ATTEND Thoracic Surgery (Cardiothoracic Vascular Surgery)
PROC: 0WP903Z Removal of Infusion Device from Right Pleural Cavity, Open Approach (ICD-10-PCS; principal; 2024-05-13)
DX: C85.10 Unspecified B-cell lymphoma, unspecified site (principal); J91.0 Malignant pleural effusion; E66.9 Obesity, unspecified; G40.909 Epilepsy, unspecified, not intractable, without status epilepticus; Z88.2 Allergy status to sulfonamides; Z79.899 Other long term (current) drug therapy; Z68.26 Body mass index [BMI] 26.0-26.9, adult
CPT/HCPCS: J0171; J0665; J2250; J2704; J3010

== ENCOUNTER 2024-06-06 08:00 | Outpatient (CLI) | payer BC | END 2024-06-06 08:01 | disposition home or self-care (01) | LOC: PET 08:00 | PROVIDERS: ATTEND Internal Medicine Hematology & Oncology | DX: C83.32 Diffuse large B-cell lymphoma, intrathoracic lymph nodes (principal) | CPT/HCPCS: 78815; A9552 ==